=== PATIENT | female | born 1930 | race Caucasian/White ===

== ENCOUNTER 2018-06-25 08:40 | Inpatient (IN) | payer MEDICARE ==
[~2018-06-25] VITALS: Ht 157.5 cm; Wt 74.1 kg
--- NOTE | 2018-06-25 09:13 | PHYS DOC ---
Past Medical History Past Medical History: A-Fib, CVA (hemorrhagic), Hypertension Past Surgical History: Appendectomy, Cholecystectomy Smoking: Cigarettes (The patient is a nonsmoker.) Adult General HPI HPI Patient is a pleasant 87-year-old female, who lives in an independent retirement apartment, who presents to the emergency department for evaluation. She states that on Monday and Monday she had a lot of diarrhea and nausea, but her symptoms improved yesterday, but she began having diarrhea again overnight. She has not had any abdominal pain other than some mild intermittent abdominal cramping. She has not had any fevers or chills, or vomiting, but has had some nausea. He denies any chest pain or shortness of breath. She has not had any urinary symptoms, numbness, or focal weakness. She has had some mild generalized weakness. There are no alleviating or exacerbating factors to the patient's symptoms. Review of Systems Review of Systems Constitutional: Denies fever or chills [] Eyes: Denies change in visual acuity, redness, or eye pain [] HENT: Denies nasal congestion or sore throat [] Respiratory: Denies cough or shortness of breath [] Cardiovascular: The patient denies any shortness of breath, chest pain, palpitations, or orthopnea [] GI: No additional information not addressed in HPI [] : Denies dysuria or hematuria [] Musculoskeletal: Denies back pain or joint pain [] Integument: Denies rash or skin lesions [] Neurologic: Denies headache, focal weakness or sensory changes [] Endocrine: Denies polyuria or polydipsia [] All other systems were reviewed and found to be within normal limits, except as documented in this note. Current Medications Current Medications Current Medications Medications (Trade) Dose Ordered Sig/Rosibel Start Time Stop Time Status Last Admin Dose Admin Sodium Chloride 1,000 ml @ 100 mls/hr Q10H 06/25/18 10:00 06/25/18 19:59 06/25/18 10:00 100 MLS/HR Allergies Allergies Allergies Coded Allergies Type Severity Reaction Last Updated Verified Penicillins Allergy Unknown Hives 06/25/18 Yes Physical Exam Physical Exam PHYSICAL EXAM: CONSTITUTIONAL: Well developed, well nourished HEAD: normocephalic, atraumatic EENT: PERRL, EOMI. Conjunctivae normal color, sclerae non-icteric; moist mucous membranes. NECK: Supple, non-tender; no meningismus. LUNGS: Lungs CTA, breathing even and unlabored. Normal air movement. HEART: Regular rate and rhythm, no murmur CHEST: No deformity; non-tender ABDOMEN: The abdomen is soft, and non-tender, no masses or bruits. EXTREM: Normal ROM; no deformity, no calf tenderness. Normal pulses palpable in all extremities. There is no pedal edema. SKIN: No rash; no diaphoresis NEURO: Alert; normal speech and cognition; CN's grossly intact; strength grossly intact without focal deficit. BACK: No CVA TTP. Current Patient Data Vital Signs Vital Signs Date Time Temp Pulse Resp B/P (MAP) Pulse Ox O2 Delivery O2 Flow Rate FiO2 06/25/18 12:00 64 113/65 (81) 94 Room Air 06/25/18 11:00 16 06/25/18 09:47 98.0 98.0 Lab Values Laboratory Tests Test 06/25/18 09:10 06/25/18 13:15 White Blood Count 9.2 x10^3/uL (4.0-11.0) Red Blood Count 4.27 x10^6/uL (3.50-5.40) Hemoglobin 13.8 g/dL (12.0-15.5) Hematocrit 40.6 % (36.0-47.0) Mean Corpuscular Volume 95 fL (79-100) Mean Corpuscular Hemoglobin 32 pg (25-35) Mean Corpuscular Hemoglobin Concent 34 g/dL (31-37) Red Cell Distribution Width 14.6 % (11.5-14.5) H Platelet Count 135 x10^3/uL (140-400) L Neutrophils (%) (Auto) 82 % (31-73) H Lymphocytes (%) (Auto) 7 % (24-48) L Monocytes (%) (Auto) 10 % (0-9) H Eosinophils (%) (Auto) 1 % (0-3) Basophils (%) (Auto) 0 % (0-3) Neutrophils # (Auto) 7.5 x10^3uL (1.8-7.7) Lymphocytes # (Auto) 0.7 x10^3/uL (1.0-4.8) L Monocytes # (Auto) 0.9 x10^3/uL (0.0-1.1) Eosinophils # (Auto) 0.1 x10^3/uL (0.0-0.7) Basophils # (Auto) 0.0 x10^3/uL (0.0-0.2) Sodium Level 140 mmol/L (136-145) Potassium Level 3.7 mmol/L (3.5-5.1) Chloride Level 102 mmol/L (98-107) Carbon Dioxide Level 26 mmol/L (21-32) Anion Gap 12 (6-14) Blood Urea Nitrogen 14 mg/dL (7-20) Creatinine 0.8 mg/dL (0.6-1.0) Estimated GFR (Cockcroft-Gault) 67.5 BUN/Creatinine Ratio 18 (6-20) Glucose Level 125 mg/dL (70-99) H Calcium Level 9.3 mg/dL (8.5-10.1) Total Bilirubin 0.6 mg/dL (0.2-1.0) Aspartate Amino Transferase (AST) 20 U/L (15-37) Alanine Aminotransferase (ALT) 24 U/L (14-59) Alkaline Phosphatase 53 U/L (46-116) Total Protein 6.8 g/dL (6.4-8.2) Albumin 3.8 g/dL (3.4-5.0) Albumin/Globulin Ratio 1.3 (1.0-1.7) Lipase 73 U/L (73-393) Stool Occult Blood Positive (NEG) Laboratory Tests 06/25/18 09:10 Laboratory Tests 06/25/18 09:10 EKG EKG [] Radiology/Procedures Radiology/Procedures [] Course & Med Decision Making Course & Med Decision Making Pertinent Labs and Imaging studies reviewed. (See chart for details) [2:20 PM: The patient's condition remains a stable. She still feels generally weak. I discussed the case with the hospitalist will admit the patient further evaluation and treatment. Given her Hemoccult positive stool GI may see her. Her belly remained soft and there is no indication for emergent CT at this time. ] Dragon Disclaimer Dragon Disclaimer This electronic medical record was generated, in whole or in part, using a voice recognition dictation system. Departure Departure Impression: Primary Impression: Diarrhea Additional Impressions: Occult blood in stools Weakness Disposition: 09 ADMITTED INPATIENT Admitting Physician: Nitesh Davalos Condition: STABLE Problem Qualifiers SEFERINO MERCER MD Jun 25, 2018 09:13
[2018-06-25 09:24] LABS: BASO % 0 % (0-3); EOS # 0.1 x10^3/uL (0.0-0.7); EOS % 1 % (0-3); HEMATOCRIT 40.6 % (36.0-47.0); HEMOGLOBIN 13.8 g/dL (12.0-15.5); LYMPH # 0.7 x10^3/uL (1.0-4.8); LYMPH % 7 % (24-48); MEAN CORPUSCULAR HEMOGLOBIN 32 pg (25-35); MEAN CORPUSCULAR HGB CONC 34 g/dL (31-37); MEAN CORPUSCULAR VOLUME 95 fL (79-100); MONO # 0.9 x10^3/uL (0.0-1.1); MONO % 10 % (0-9); NEUT # 7.5 x10^3uL (1.8-7.7); NEUT % 82 % (31-73); PLATELET COUNT 135 x10^3/uL (140-400); RED BLOOD COUNT 4.27 x10^6/uL (3.50-5.40); RED CELL DISTRIBUTION WIDTH 14.6 % (11.5-14.5); WHITE BLOOD COUNT 9.2 x10^3/uL (4.0-11.0)
[2018-06-25 09:31] LABS: CALCIUM 9.3 mg/dL (8.5-10.1); CREATININE 0.8 mg/dL (0.6-1.0); GFR 67.5; POTASSIUM 3.7 mmol/L (3.5-5.1)
[2018-06-25 09:36] LABS: ALBUMIN 3.8 g/dL (3.4-5.0); ALBUMIN/GLOBULIN RATIO 1.3 (1.0-1.7); TOTAL BILIRUBIN 0.6 mg/dL (0.2-1.0); TOTAL PROTEIN 6.8 g/dL (6.4-8.2)
[2018-06-25] MEDS ORDERED: IV NORMAL SALINE 1000ML BAG 1,000 ML IV SCH (10:00)
[2018-06-25] MEDS ORDERED: IV NORMAL SALINE 500ML BAG 500 ML IV ONE (10:00)
[2018-06-25 13:33] LABS: FECAL OB PT POSITIVE (NEG)
--- NOTE | 2018-06-25 14:44 | HP ---
ADMIT DATE: 06/25/2018 CHIEF COMPLAINT: Weakness and diarrhea. HISTORY OF PRESENT ILLNESS: The patient is a pleasant 87-year-old female who presented to the ER with weakness and diarrhea. It has been occurring for several days, rated at 9/10. She has associated nausea. She lives alone in a assisted apartment. Tried taking some ofcs-now-tjyfzsh meds, but that was not working. Describes as agonizing. She has associated abdominal cramping. I discussed the case with ER physician. He states he did a guaiac test and it is positive for blood, which he suspects she could have a GI bleed as well. We are going to admit the patient and consult GI. PAST MEDICAL HISTORY: Lymphoma, hypertension, stroke, AFib, appendectomy, cholecystectomy. ALLERGIES: PENICILLIN. FAMILY HISTORY: Coronary artery disease. SOCIAL HISTORY: She does not drink, smoke or take any drugs. She retired from [employer] for 39 years. MEDICATIONS: Reviewed, please refer to MRAD. She is on xnth-ylo-rrieaxs vitamins and a few scripts. PHYSICAL EXAMINATION: VITAL SIGNS: Temperature afebrile, pulse 92, respirations 18, blood pressure 144/90. GENERAL: She is alert, cooperative, complaining of diarrhea. HEART: Normal S1, S2. LUNGS: Clear to auscultation. ABDOMEN: Soft, tender in the lower quadrants of the abdomen. EXTREMITIES: Trace edema. SKIN: No rash. ENDOCRINE: No thyromegaly. LYMPHATICS: No cervical nodes. HEMATOPOIETIC: No bruising. PSYCHIATRIC: She is depressed. NEUROLOGIC: She moves all extremities. No focal deficits. LABORATORY DATA: Hemoglobin is 13.8. Electrolytes are normal. ASSESSMENT AND PLAN: Gastrointestinal bleed and possible Clostridium difficile. The patient has been admitted. We will consult GI, p.r.n. Imodium. We will consider p.o. vancomycin or Flagyl. Frequent labs, PT, OT, home meds, IV fluids. CARLITOS HADLEY DO DR: CECILIA/clary JOB#: [id number] / [id number]
[2018-06-25 16:00] VITALS: BP 158/86
[2018-06-25] MEDS ORDERED: LEVE500T56 PO (17:42)
[2018-06-25] MEDS ORDERED: PANT20TA2 PO (17:42)
[2018-06-25] MEDS ORDERED: LEVO75TA PO (17:42)
[2018-06-25] MEDS ORDERED: AMLO5TAB7 PO (17:42)
[2018-06-25] MEDS ORDERED: FURO-69 PO (17:42)
[2018-06-25] MEDS ORDERED: SERT50TA PO (17:42)
[2018-06-25] MEDS ORDERED: LOSA-73 PO (17:42)
[2018-06-25] MEDS ORDERED: POTA10TA12 PO (17:42)
[2018-06-25] MEDS ORDERED: ATOR10TA60 PO (17:42)
[2018-06-25 19:00] VITALS: BP 162/97
[2018-06-25] MEDS: amLODIPine BESYLATE 5 MG TABLET PO SCH (21:23)
[2018-06-25] MEDS: levETIRAcetam 500 MG TABLET PO SCH (21:24)
[2018-06-25] MEDS: LOSARTAN POTASSIUM 50 MG TABLET. PO SCH (21:24)
[2018-06-25 22:56] VITALS: BP 149/91
[2018-06-26 03:00] VITALS: BP 140/80
[2018-06-26 07:00] VITALS: BP 132/84
[2018-06-26 07:13] LABS: BILIRUBIN,URINE NEGATIVE (NEG); CLARITY,URINE CLEAR; COLOR,URINE YELLOW; NITRITE,URINE NEGATIVE (NEG); PH,URINE 5.5; PROTEIN,URINE NEGATIVE (NEG-TRACE); UROBILINOGEN,URINE 0.2 mg/dL (0.2 mg/dL)
[2018-06-26 07:29] LABS: SQUAMOUS EPITHELIAL CELL,UR MOD /LPF
[2018-06-26 07:31] LABS: BACTERIA,URINE FEW /HPF (0-FEW); RBC,URINE 0 /HPF (0-2); WBC,URINE 20-40 /HPF (0-4)
[2018-06-26] MEDS: ATORVASTATIN CALCIUM 10 MG TABLET. PO SCH (07:35)
[2018-06-26] MEDS: SERTRALINE 50 MG TABLET. PO SCH (07:35)
[2018-06-26] MEDS: levETIRAcetam 500 MG TABLET PO SCH ×2 (07:36→20:46)
[2018-06-26] MEDS: LEVOTHYROXINE 75 MCG TABLET PO SCH (07:36)
[2018-06-26] MEDS: amLODIPine BESYLATE 5 MG TABLET PO SCH (07:36)
[2018-06-26] MEDS: LOSARTAN POTASSIUM 50 MG TABLET. PO SCH (07:36)
[2018-06-26] MEDS: PANTOPRAZOLE 40 MG TABLET.DR. PO SCH (07:36)
[2018-06-26] MEDS ORDERED: amLODIPine BESYLATE 5 MG TABLET PO SCH (09:00)
[2018-06-26] MEDS ORDERED: LOSARTAN POTASSIUM 50 MG TABLET. PO SCH (09:00)
--- NOTE | 2018-06-26 09:41 | PDOC2 ---
GI CONSULT Reason For Consult: Diarrhea HPI: HPI: 87 y/o woman with h/o intermittent diarrhea for at least 2 years. In fact, this is why she had her last colonoscopy ~2 years ago (thinks maybe in [place] or with Dr. Schultz). She has had "a lot" of colonoscopies but recalls no abnormal findings. Diarrhea most recently occurred in March, then then weekend before Thanksgiving after the holiday meal where she lives ([place]?), and then recurred overnight on Monday. Imodium usually helps, but not this time. Occurs "all day and all night" - no stools since yesterday. Associated w/ intermittent lower abdominal cramping and occasional nausea. Has avoided eating. Has had more than one EGD w/ remote h/o ulcer. "A little" GERD controlled w/ pantoprazole QD. No dysphagia or vomiting. No weight loss. No hematochezia or melena (says stools have been dark brown and yellowish - sometimes watery, sometimes in little pieces). Can actually occasionally be constipated (and takes Miralax) but not recently. Sometimes she has to repeatedly wipe after stooling to feel clean - attributes to hemorrhoid. Has some chronic right- sided discomfort when she lays on her left side that she thinks is related to previous hernia repair. Has had GI bleeding in the past requiring transfusions - relates to use of anticoagulants, unclear if specific bleeding source identified. S/p cholecystectomy (no stones). No liver or pancreas history. No NSAIDs. No recent antibiotic use. Also denies any changes in medications. Fell a couple weeks ago, was hospitalized and then went to rehab, Says she was told there was some blood found in her stool and she might have cancer so she needs a colonoscopy. She is hesitant because she has heard colonoscopies can be dangerous with advanced age. WBC and Hgb are WNL. Fecal occult was positive. C Diff was negative. Stool culture is pending. PMH: PMH: A Fib, CAD, valvular disease, HTN, CVA, hypothyroidism, GERD, "ulcer," hemorrhoid, lymphoma (chemo), CABG, AVR, cholecystectomy, incisional hernia repair, back surgeries FH: Family History: No pertinent hx Social History: Smoke: No ALCOHOL: none Drugs: None ROS: GEN: Denies fevers, chills, sweats HEENT: Denies blurred vision, sore throat CV: Denies chest pain RESP: Denies shortness of air, cough GI: Per HPI : Denies hematuria, dysuria ENDO: Denies weight changes NEURO: Denies confusion, dizziness MSK: +weakness SKIN: Denies jaundice, pruritus Vitals: Vitals: Vital Signs Date Time Temp Pulse Resp B/P (MAP) Pulse Ox O2 Delivery O2 Flow Rate FiO2 06/26/18 08:00 Room Air 06/26/18 07:36 87 132/84 06/26/18 07:00 98.2 18 93 98.2 Labs: Labs: Laboratory Tests Test 06/25/18 13:15 06/26/18 06:45 Stool Occult Blood Positive (NEG) Clostridium difficile Toxin B Gene Negative (Negative) Urine Collection Type Unknown Urine Color Yellow Urine Clarity Clear Urine pH 5.5 Urine Specific [place] 1.010 Urine Protein Negative mg/dL (NEG-TRACE) Urine Glucose (UA) Negative mg/dL (NEG) Urine Ketones (Stick) Trace mg/dL (NEG) Urine Blood Negative (NEG) Urine Nitrite Negative (NEG) Urine Bilirubin Negative (NEG) Urine Urobilinogen Dipstick 0.2 mg/dL (0.2 mg/dL) Urine Leukocyte Esterase Trace (NEG) Urine RBC 0 /HPF (0-2) Urine WBC 20-40 /HPF (0-4) Urine Squamous Epithelial Cells Mod /LPF Urine Bacteria Few /HPF (0-FEW) Allergies: Coded Allergies: Penicillins (Verified Allergy, Intermediate, Hives, 06/26/18) Medications: Current Medications Medications (Trade) Dose Ordered Sig/Rosibel Route PRN Reason Start Time Stop Time Status Last Admin Dose Admin Sodium Chloride 500 ml @ 500 mls/hr 1X ONCE IV 06/25/18 10:00 06/25/18 10:59 DC 06/25/18 10:03 Sodium Chloride 1,000 ml @ 100 mls/hr Q10H IV 06/25/18 10:00 06/25/18 19:59 DC 06/25/18 10:00 Atorvastatin Calcium (Lipitor) 10 mg DAILY PO 06/26/18 09:00 06/26/18 07:35 Levetiracetam (Keppra) 500 mg BID PO 06/25/18 21:00 06/26/18 07:36 Levothyroxine Sodium (Synthroid) 75 mcg DAILY PO 06/26/18 09:00 06/26/18 07:36 Sertraline HCl (Zoloft) 75 mg DAILY PO 06/26/18 09:00 06/26/18 07:35 Pantoprazole Sodium (Protonix) 40 mg DAILYAC PO 06/26/18 07:30 06/26/18 07:36 Amlodipine Besylate (Norvasc) 5 mg DAILY PO 06/25/18 21:00 06/26/18 07:36 Losartan Potassium (Cozaar) 50 mg DAILY PO 06/25/18 21:00 06/26/18 07:36 Imaging: Imaging: None. PE: GEN: NAD HEENT: Atraumatic, PERRL LUNGS: CTAB HEART: RRR ABD: NABS, S/ND/NT EXTREMITY: No edema SKIN: No rashes, no jaundice NEURO/PSYCH: A & O 3 A/P: A/P: Recurrent diarrhea w/ nausea and lower abd cramping +fecal occult GERD, h/o ulcer - on PPI H/o GI bleeding requiring transfusions Irregular bowel habits CRC screen - multiple colonoscopies in the past, says all normal S/p cholecystectomy -- Actually seems like a chronic issue, perhaps more bothersome over the weekend. Stool culture pending, await this. Will try clears, check CT A/P, and observe. Continue PPI. Other per Dr. Zurita. Update - able to view colonoscopy report from 07/2010 (performed by Dr. Schultz for follow-up of polyps): 2mm adenomatous polyp in the ascending colon, 2mm adenomatous polyp in the descending colon, hyperplastic polyp in the sigmoid colon, and diverticulosis from proximal ascending colon to distal sigmoid colon. CASTILLO GRECO Jun 26, 2018 09:40
[2018-06-26 10:37] VITALS: BP 131/84
[2018-06-26] MEDS ORDERED: IOHEXOL 240 MG/ML 50ML VIAL. IV ONE (11:00)
[2018-06-26] MEDS ORDERED: CONTRAST GIVEN. MC PRN (11:00)
[2018-06-26] MEDS ORDERED: IOHEXOL 300 MG/ML 100ML VIAL. IV ONE (11:00)
--- NOTE | 2018-06-26 13:10 | PDOC ---
PROGRESS NOTES History of Present Illness History of Present Illness Pleasant 87yo female w/ PMHx Lymphoma, hypertension, stroke, AFib, appendectomy , cholecystectomy admitted for intermittent diarrhea for at least 2 years. Diarrhea most recently occurred weekend before Thanksgiving after the holiday meal where she lives. Imodium usually helps, but not this time. Occurs "all day and all night" - no stools since yesterday. Associated w/ intermittent lower abdominal cramping and occasional nausea. Has avoided eating due to this , does not like her diet at [facility]. Has had more than one EGD w/ remote h/o ulcer and colonoscopy in 2010 with hyperplastic polyp and 2x adenomatous polyps. No dysphagia or vomiting. No weight loss. Has had GI bleeding in the past requiring transfusions - relates to use of anticoagulants, unclear if specific bleeding source identified. S/p cholecystectomy (no stones). Discussed with her and her daughter bedside, was told there was some blood found in her stool and she might have cancer so she needs a colonoscopy. She still does not have appetite today and would like to have ice cream at the least. WBC and Hgb are WNL. Fecal occult was positive. C Diff was negative. Stool culture is pending. A/P: Blood in stool - history of rectal bleeding previously multiple colonoscopies, will consult GI Diarrhea - sounds chronic, will f/u stool cultures, immodium ok if c diff negative. HTN - will monitor Afib - rate control H/O CVA - ambulatory FEN - Clear liquid, ok for full liquid after CT abdomen PPX - SCDs FULL CODE Inpatient for diarrhea of uncertain etiology at least 2 midnights Vitals Vitals Vital Signs Date Time Temp Pulse Resp B/P (MAP) Pulse Ox O2 Delivery O2 Flow Rate FiO2 06/26/18 10:37 97.8 68 20 131/84 (100) 94 Room Air 97.8 Labs LABS Laboratory Tests Test 06/25/18 13:15 06/26/18 06:45 Stool Occult Blood Positive (NEG) Clostridium difficile Toxin B Gene Negative (Negative) Urine Collection Type Unknown Urine Color Yellow Urine Clarity Clear Urine pH 5.5 Urine Specific [place] 1.010 Urine Protein Negative mg/dL (NEG-TRACE) Urine Glucose (UA) Negative mg/dL (NEG) Urine Ketones (Stick) Trace mg/dL (NEG) Urine Blood Negative (NEG) Urine Nitrite Negative (NEG) Urine Bilirubin Negative (NEG) Urine Urobilinogen Dipstick 0.2 mg/dL (0.2 mg/dL) Urine Leukocyte Esterase Trace (NEG) Urine RBC 0 /HPF (0-2) Urine WBC 20-40 /HPF (0-4) Urine Squamous Epithelial Cells Mod /LPF Urine Bacteria Few /HPF (0-FEW) Assessment and Plan Assessmemt and Plan Problems Medical Problems: (1) Diarrhea Status: Acute (2) Occult blood in stools Status: Acute (3) Weakness Status: Acute Comment Review of Relevant I have reviewed the following items alfredo (where applicable) has been applied. Labs Laboratory Tests Test 06/25/18 09:10 06/25/18 13:15 06/26/18 06:45 White Blood Count 9.2 x10^3/uL (4.0-11.0) Red Blood Count 4.27 x10^6/uL (3.50-5.40) Hemoglobin 13.8 g/dL (12.0-15.5) Hematocrit 40.6 % (36.0-47.0) Mean Corpuscular Volume 95 fL (79-100) Mean Corpuscular Hemoglobin 32 pg (25-35) Mean Corpuscular Hemoglobin Concent 34 g/dL (31-37) Red Cell Distribution Width 14.6 % (11.5-14.5) Platelet Count 135 x10^3/uL (140-400) Neutrophils (%) (Auto) 82 % (31-73) Lymphocytes (%) (Auto) 7 % (24-48) Monocytes (%) (Auto) 10 % (0-9) Eosinophils (%) (Auto) 1 % (0-3) Basophils (%) (Auto) 0 % (0-3) Neutrophils # (Auto) 7.5 x10^3uL (1.8-7.7) Lymphocytes # (Auto) 0.7 x10^3/uL (1.0-4.8) Monocytes # (Auto) 0.9 x10^3/uL (0.0-1.1) Eosinophils # (Auto) 0.1 x10^3/uL (0.0-0.7) Basophils # (Auto) 0.0 x10^3/uL (0.0-0.2) Sodium Level 140 mmol/L (136-145) Potassium Level 3.7 mmol/L (3.5-5.1) Chloride Level 102 mmol/L (98-107) Carbon Dioxide Level 26 mmol/L (21-32) Anion Gap 12 (6-14) Blood Urea Nitrogen 14 mg/dL (7-20) Creatinine 0.8 mg/dL (0.6-1.0) Estimated GFR (Cockcroft-Gault) 67.5 BUN/Creatinine Ratio 18 (6-20) Glucose Level 125 mg/dL (70-99) Calcium Level 9.3 mg/dL (8.5-10.1) Total Bilirubin 0.6 mg/dL (0.2-1.0) Aspartate Amino Transf (AST/SGOT) 20 U/L (15-37) Alanine Aminotransferase (ALT/SGPT) 24 U/L (14-59) Alkaline Phosphatase 53 U/L (46-116) Total Protein 6.8 g/dL (6.4-8.2) Albumin 3.8 g/dL (3.4-5.0) Albumin/Globulin Ratio 1.3 (1.0-1.7) Lipase 73 U/L (73-393) Stool Occult Blood Positive (NEG) Clostridium difficile Toxin B Gene Negative (Negative) Urine Collection Type Unknown Urine Color Yellow Urine Clarity Clear Urine pH 5.5 Urine Specific [place] 1.010 Urine Protein Negative mg/dL (NEG-TRACE) Urine Glucose (UA) Negative mg/dL (NEG) Urine Ketones (Stick) Trace mg/dL (NEG) Urine Blood Negative (NEG) Urine Nitrite Negative (NEG) Urine Bilirubin Negative (NEG) Urine Urobilinogen Dipstick 0.2 mg/dL (0.2 mg/dL) Urine Leukocyte Esterase Trace (NEG) Urine RBC 0 /HPF (0-2) Urine WBC 20-40 /HPF (0-4) Urine Squamous Epithelial Cells Mod /LPF Urine Bacteria Few /HPF (0-FEW) Laboratory Tests Test 06/25/18 13:15 06/26/18 06:45 Stool Occult Blood Positive (NEG) Clostridium difficile Toxin B Gene Negative (Negative) Urine Collection Type Unknown Urine Color Yellow Urine Clarity Clear Urine pH 5.5 Urine Specific [place] 1.010 Urine Protein Negative mg/dL (NEG-TRACE) Urine Glucose (UA) Negative mg/dL (NEG) Urine Ketones (Stick) Trace mg/dL (NEG) Urine Blood Negative (NEG) Urine Nitrite Negative (NEG) Urine Bilirubin Negative (NEG) Urine Urobilinogen Dipstick 0.2 mg/dL (0.2 mg/dL) Urine Leukocyte Esterase Trace (NEG) Urine RBC 0 /HPF (0-2) Urine WBC 20-40 /HPF (0-4) Urine Squamous Epithelial Cells Mod /LPF Urine Bacteria Few /HPF (0-FEW) Medications Current Medications Sodium Chloride 500 ml @ 500 mls/hr 1X ONCE IV Last administered on at 10:03; Start 06/25/18 at 10:00; Stop 06/25/18 at 10:59; Status DC Sodium Chloride 1,000 ml @ 100 mls/hr Q10H IV Last administered on 06/25/18at 10:00; Start 06/25/18 at 10:00; Stop 06/25/18 at 19:59; Status DC Amlodipine Besylate (Norvasc) 5 mg DAILY PO ; Start 06/26/18 at 09:00; Stop at 09:00; Status DC Atorvastatin Calcium (Lipitor) 10 mg DAILY PO Last administered on 06/26/18at 07:35; Start 06/26/18 at 09:00 Furosemide (Lasix) 20 mg QMWF PO ; Start 06/27/18 at 16:00 Levetiracetam (Keppra) 500 mg BID PO Last administered on 06/26/18at 07:36; Start 06/25/18 at 21:00 Levothyroxine Sodium (Synthroid) 75 mcg DAILY PO Last administered on at 07:36; Start 06/26/18 at 09:00 Losartan Potassium (Cozaar) 50 mg DAILY PO ; Start 06/26/18 at 09:00; Stop at 09:00; Status DC Potassium Chloride (Klor-Con) 10 meq QMWF PO ; Start 06/27/18 at 16:00 Sertraline HCl (Zoloft) 75 mg DAILY PO Last administered on 06/26/18at 07:35; Start 06/26/18 at 09:00 Pantoprazole Sodium (Protonix) 40 mg DAILYAC PO Last administered on at 07:36; Start 06/26/18 at 07:30 Amlodipine Besylate (Norvasc) 5 mg DAILY PO Last administered on 06/26/18at 07: 36; Start 06/25/18 at 21:00 Losartan Potassium (Cozaar) 50 mg DAILY PO Last administered on 06/26/18at 07: 36; Start 06/25/18 at 21:00 Iohexol (Omnipaque 240 Mg/ml) 50 ml 1X ONCE IV ; Start 06/26/18 at 11:00; Stop 06/26/18 at 11:01; Status DC Iohexol (Omnipaque 300 Mg/ml) 75 ml 1X ONCE IV ; Start 06/26/18 at 11:00; Stop 06/26/18 at 11:01; Status DC Info (CONTRAST GIVEN -- Rx MONITORING) 1 each PRN DAILY PRN MC SEE COMMENTS; Start 06/26/18 at 11:00; Stop 06/28/18 at 10:59 Active Scripts Active Reported Synthroid (Levothyroxine Sodium) 75 Mcg Tablet 1 Tab PO DAILY Losartan Potassium 50 Mg Tablet 50 Mg PO DAILY Zoloft (Sertraline Hcl) 50 Mg Tablet 75 Mg PO DAILY Keppra (Levetiracetam) 500 Mg Tablet 1 Tab PO BID Protonix (Pantoprazole Sodium) 20 Mg Tablet.dr 40 Mg PO DAILY Amlodipine Besylate 5 Mg Tablet 5 Mg PO DAILY Atorvastatin Calcium 10 Mg Tablet 1 Tab PO DAILY Potassium Chloride 10 Meq Tab.sr.24h 10 Meq PO QMWF Lasix (Furosemide) 20 Mg Tablet 20 Mg PO QMWF Vitals/I & O Vital Sign - Last 24 Hours 06/25/18 06/25/18 06/25/18 06/25/18 13:52 14:52 16:00 18:07 Temp 97.8 97.8 Pulse 68 66 74 Resp 20 B/P (MAP) 146/86 (106) 156/90 (112) 158/86 (110) Pulse Ox 92 O2 Delivery Room Air Room Air 06/25/18 06/25/18 06/25/18 06/25/18 19:00 20:09 21:23 21:24 Temp 97.8 97.8 Pulse 69 69 69 Resp 20 B/P (MAP) 162/97 (118) 162/97 162/97 Pulse Ox 93 O2 Delivery Room Air Room Air 06/25/18 06/26/18 06/26/18 06/26/18 22:56 03:00 07:00 07:36 Temp 98.1 97.9 98.2 98.1 97.9 98.2 Pulse 80 74 87 87 Resp 18 18 18 B/P (MAP) 149/91 (110) 140/80 (100) 132/84 (100) 132/84 Pulse Ox 93 93 93 O2 Delivery Room Air Room Air Room Air 06/26/18 06/26/18 06/26/18 07:36 08:00 10:37 Temp 97.8 97.8 Pulse 87 68 Resp 20 B/P (MAP) 132/84 131/84 (100) Pulse Ox 94 O2 Delivery Room Air Room Air Intake and Output 06/25/18 06/25/18 06/26/18 15:00 23:00 07:00 Intake Total 600 ml 60 ml Balance 600 ml 60 ml NIKIA KOWALSKI MD Jun 26, 2018 13:10
--- NOTE | 2018-06-26 14:10 | RAD ---
CT of the abdomen and pelvis with contrast, 06/26/2018: HISTORY: Lower abdominal pain, diarrhea Multidetector CT imaging was performed following oral and IV administration of contrast. A stent-like radiopacity is present related to the proximal descending aorta and aortic valve region. Coronary artery calcifications are present. There is mild linear atelectasis and/or scarring in the lung bases. There is a 4.4 cm cyst in the left lobe of the liver. There is a smaller nearby 1 cm cyst. The gallbladder is surgically absent. Mild prominence of the central intrahepatic bile ducts and common hepatic duct is probably secondary to the postcholecystectomy state. No dense common duct calculus is seen. The pancreas is unremarkable. The spleen is of normal size. No renal or adrenal abnormality is detected. There is moderate aortoiliac calcific plaquing without evidence of aneurysm. No abdominal or pelvic adenopathy is seen. The uterus is atrophic. Artifacts arising from a right hip prosthesis degrade image quality in the lower pelvis. Scattered colonic diverticula are present. No paracolonic inflammatory process is seen. The appendix is not visualized. No dilated appendix is evident. The bowel loops are not dilated. No free air or free fluid is evident in the abdomen or pelvis. There is diastases of the rectus abdominis musculature with thinning of the intervening fascia. There is a suggestion of a surgical mesh in this region at the midline. Severe degenerative change is present at the left hip. There are severe degenerative changes in the spine. There has been a previous lower lumbar spinal fusion with partial laminectomy. A radiopacity within the right side of the upper sacral spinal canal probably represents an old Pantopaque droplet. There is a vertebral compression fracture with vertebroplasty change at approximately the T11 level. IMPRESSION: 1. Colonic diverticulosis. 2. Mild biliary ductal prominence is probably secondary to the postcholecystectomy state. 3. Hepatic cysts. 4. Other miscellaneous chronic findings as described above. 5. No acute abdominal or pelvic abnormality is detected. PQRS Compliance Statement: One or more of the following individualized dose reduction techniques were utilized for this examination: 1. Automated exposure control 2. Adjustment of the mA and/or kV according to patient size 3. Use of iterative reconstruction technique Electronically signed by: Candido Pang MD (06/26/2018 2:06 PM) [facility]
[2018-06-26 14:51] VITALS: BP 145/82
[2018-06-26] MEDS ORDERED: LOPERAMIDE 2 MG CAPSULE PO PRN (15:00)
[2018-06-26 19:00] VITALS: BP 148/85
[2018-06-26] MEDS: COLESTIPOL HCL 1 GM TABLET PO SCH (21:57)
[2018-06-26 23:00] VITALS: BP 154/106
[2018-06-27 03:00] VITALS: BP 133/76
[2018-06-27 06:21] LABS: BASO % 1 % (0-3); EOS # 0.2 x10^3/uL (0.0-0.7); EOS % 2 % (0-3); HEMOGLOBIN 13.7 g/dL (12.0-15.5); LYMPH # 0.8 x10^3/uL (1.0-4.8); LYMPH % 12 % (24-48); MEAN CORPUSCULAR HEMOGLOBIN 33 pg (25-35); MEAN CORPUSCULAR HGB CONC 35 g/dL (31-37); MEAN CORPUSCULAR VOLUME 94 fL (79-100); MONO # 0.8 x10^3/uL (0.0-1.1); MONO % 12 % (0-9); NEUT % 74 % (31-73); PLATELET COUNT 136 x10^3/uL (140-400); RED BLOOD COUNT 4.13 x10^6/uL (3.50-5.40); RED CELL DISTRIBUTION WIDTH 14.4 % (11.5-14.5); WHITE BLOOD COUNT 6.8 x10^3/uL (4.0-11.0)
[2018-06-27 06:36] LABS: ALBUMIN 3.3 g/dL (3.4-5.0); CALCIUM 8.7 mg/dL (8.5-10.1); CREATININE 0.6 mg/dL (0.6-1.0); GFR 94.1; TOTAL BILIRUBIN 0.6 mg/dL (0.2-1.0); TOTAL PROTEIN 6.6 g/dL (6.4-8.2)
[2018-06-27 07:00] VITALS: BP 131/79
[2018-06-27] MEDS: PANTOPRAZOLE 40 MG TABLET.DR. PO SCH (07:05)
--- NOTE | 2018-06-27 07:49 | PDOC ---
PROGRESS NOTES History of Present Illness History of Present Illness Pleasant 87yo female w/ PMHx Lymphoma, hypertension, stroke, AFib, appendectomy , cholecystectomy admitted for intermittent diarrhea for at least 2 years. Diarrhea most recently occurred weekend before Thanksgiving after the holiday meal where she lives. Imodium usually helps, but not this time. Occurs "all day and all night" - no stools since yesterday. Associated w/ intermittent lower abdominal cramping and occasional nausea. Has avoided eating due to this , does not like her diet at [facility] [place]. Has had more than one EGD w/ remote h/o ulcer and colonoscopy in 2010 with hyperplastic polyp and 2x adenomatous polyps. No dysphagia or vomiting. No weight loss. Has had GI bleeding in the past requiring transfusions - relates to use of anticoagulants, unclear if specific bleeding source identified. S/p cholecystectomy (no stones). Discussed with her and her daughter bedside, she had CT abdomen rather negative. Ate a full meal last night, would like to continue eating. No BM. WBC and Hgb are WNL. Fecal occult was positive. C Diff was negative. Stool culture is pending. A/P: Blood in stool - history of rectal bleeding previously multiple colonoscopies, will consult GI Diarrhea - sounds chronic, will f/u stool cultures, immodium ok if c diff negative. HTN - will monitor Afib - rate control H/O CVA - ambulatory FEN - Clear liquid, ok for full liquid after CT abdomen PPX - SCDs FULL CODE Inpatient for diarrhea of uncertain etiology at least [address] abdomen - 1. Colonic diverticulosis. 2. Mild biliary ductal prominence is probably secondary to the postcholecystectomy state. 3. Hepatic cysts. 4. Other miscellaneous chronic findings as described above. 5. No acute abdominal or pelvic abnormality is detected. Vitals Vitals Vital Signs Date Time Temp Pulse Resp B/P (MAP) Pulse Ox O2 Delivery O2 Flow Rate FiO2 06/27/18 03:00 97.9 61 20 133/76 (95) 97 Room Air 97.9 Labs LABS Laboratory Tests Test 06/27/18 05:20 White Blood Count 6.8 x10^3/uL (4.0-11.0) Red Blood Count 4.13 x10^6/uL (3.50-5.40) Hemoglobin 13.7 g/dL (12.0-15.5) Hematocrit 39.0 % (36.0-47.0) Mean Corpuscular Volume 94 fL (79-100) Mean Corpuscular Hemoglobin 33 pg (25-35) Mean Corpuscular Hemoglobin Concent 35 g/dL (31-37) Red Cell Distribution Width 14.4 % (11.5-14.5) Platelet Count 136 x10^3/uL (140-400) Neutrophils (%) (Auto) 74 % (31-73) Lymphocytes (%) (Auto) 12 % (24-48) Monocytes (%) (Auto) 12 % (0-9) Eosinophils (%) (Auto) 2 % (0-3) Basophils (%) (Auto) 1 % (0-3) Neutrophils # (Auto) 5.0 x10^3uL (1.8-7.7) Lymphocytes # (Auto) 0.8 x10^3/uL (1.0-4.8) Monocytes # (Auto) 0.8 x10^3/uL (0.0-1.1) Eosinophils # (Auto) 0.2 x10^3/uL (0.0-0.7) Basophils # (Auto) 0.0 x10^3/uL (0.0-0.2) Sodium Level 140 mmol/L (136-145) Potassium Level 3.0 mmol/L (3.5-5.1) Chloride Level 103 mmol/L (98-107) Carbon Dioxide Level 27 mmol/L (21-32) Anion Gap 10 (6-14) Blood Urea Nitrogen 5 mg/dL (7-20) Creatinine 0.6 mg/dL (0.6-1.0) Estimated GFR (Cockcroft-Gault) 94.1 BUN/Creatinine Ratio 8 (6-20) Glucose Level 115 mg/dL (70-99) Calcium Level 8.7 mg/dL (8.5-10.1) Total Bilirubin 0.6 mg/dL (0.2-1.0) Aspartate Amino Transf (AST/SGOT) 18 U/L (15-37) Alanine Aminotransferase (ALT/SGPT) 23 U/L (14-59) Alkaline Phosphatase 54 U/L (46-116) Total Protein 6.6 g/dL (6.4-8.2) Albumin 3.3 g/dL (3.4-5.0) Albumin/Globulin Ratio 1.0 (1.0-1.7) Assessment and Plan Assessmemt and Plan Problems Medical Problems: (1) Diarrhea Status: Acute (2) Occult blood in stools Status: Acute (3) Weakness Status: Acute Comment Review of Relevant I have reviewed the following items alfredo (where applicable) has been applied. Labs Laboratory Tests Test 06/25/18 09:10 06/25/18 13:15 06/26/18 06:45 06/27/18 05:20 White Blood Count 9.2 x10^3/uL (4.0-11.0) 6.8 x10^3/uL (4.0-11.0) Red Blood Count 4.27 x10^6/uL (3.50-5.40) 4.13 x10^6/uL (3.50-5.40) Hemoglobin 13.8 g/dL (12.0-15.5) 13.7 g/dL (12.0-15.5) Hematocrit 40.6 % (36.0-47.0) 39.0 % (36.0-47.0) Mean Corpuscular Volume 95 fL (79-100) 94 fL (79-100) Mean Corpuscular Hemoglobin 32 pg (25-35) 33 pg (25-35) Mean Corpuscular Hemoglobin Concent 34 g/dL (31-37) 35 g/dL (31-37) Red Cell Distribution Width 14.6 % (11.5-14.5) 14.4 % (11.5-14.5) Platelet Count 135 x10^3/uL (140-400) 136 x10^3/uL (140-400) Neutrophils (%) (Auto) 82 % (31-73) 74 % (31-73) Lymphocytes (%) (Auto) 7 % (24-48) 12 % (24-48) Monocytes (%) (Auto) 10 % (0-9) 12 % (0-9) Eosinophils (%) (Auto) 1 % (0-3) 2 % (0-3) Basophils (%) (Auto) 0 % (0-3) 1 % (0-3) Neutrophils # (Auto) 7.5 x10^3uL (1.8-7.7) 5.0 x10^3uL (1.8-7.7) Lymphocytes # (Auto) 0.7 x10^3/uL (1.0-4.8) 0.8 x10^3/uL (1.0-4.8) Monocytes # (Auto) 0.9 x10^3/uL (0.0-1.1) 0.8 x10^3/uL (0.0-1.1) Eosinophils # (Auto) 0.1 x10^3/uL (0.0-0.7) 0.2 x10^3/uL (0.0-0.7) Basophils # (Auto) 0.0 x10^3/uL (0.0-0.2) 0.0 x10^3/uL (0.0-0.2) Sodium Level 140 mmol/L (136-145) 140 mmol/L (136-145) Potassium Level 3.7 mmol/L (3.5-5.1) 3.0 mmol/L (3.5-5.1) Chloride Level 102 mmol/L (98-107) 103 mmol/L (98-107) Carbon Dioxide Level 26 mmol/L (21-32) 27 mmol/L (21-32) Anion Gap 12 (6-14) 10 (6-14) Blood Urea Nitrogen 14 mg/dL (7-20) 5 mg/dL (7-20) Creatinine 0.8 mg/dL (0.6-1.0) 0.6 mg/dL (0.6-1.0) Estimated GFR (Cockcroft-Gault) 67.5 94.1 BUN/Creatinine Ratio 18 (6-20) 8 (6-20) Glucose Level 125 mg/dL (70-99) 115 mg/dL (70-99) Calcium Level 9.3 mg/dL (8.5-10.1) 8.7 mg/dL (8.5-10.1) Total Bilirubin 0.6 mg/dL (0.2-1.0) 0.6 mg/dL (0.2-1.0) Aspartate Amino Transf (AST/SGOT) 20 U/L (15-37) 18 U/L (15-37) Alanine Aminotransferase (ALT/SGPT) 24 U/L (14-59) 23 U/L (14-59) Alkaline Phosphatase 53 U/L (46-116) 54 U/L (46-116) Total Protein 6.8 g/dL (6.4-8.2) 6.6 g/dL (6.4-8.2) Albumin 3.8 g/dL (3.4-5.0) 3.3 g/dL (3.4-5.0) Albumin/Globulin Ratio 1.3 (1.0-1.7) 1.0 (1.0-1.7) Lipase 73 U/L (73-393) Stool Occult Blood Positive (NEG) Clostridium difficile Toxin B Gene Negative (Negative) Urine Collection Type Unknown Urine Color Yellow Urine Clarity Clear Urine pH 5.5 Urine Specific [place] 1.010 Urine Protein Negative mg/dL (NEG-TRACE) Urine Glucose (UA) Negative mg/dL (NEG) Urine Ketones (Stick) Trace mg/dL (NEG) Urine Blood Negative (NEG) Urine Nitrite Negative (NEG) Urine Bilirubin Negative (NEG) Urine Urobilinogen Dipstick 0.2 mg/dL (0.2 mg/dL) Urine Leukocyte Esterase Trace (NEG) Urine RBC 0 /HPF (0-2) Urine WBC 20-40 /HPF (0-4) Urine Squamous Epithelial Cells Mod /LPF Urine Bacteria Few /HPF (0-FEW) Laboratory Tests Test 06/27/18 05:20 White Blood Count 6.8 x10^3/uL (4.0-11.0) Red Blood Count 4.13 x10^6/uL (3.50-5.40) Hemoglobin 13.7 g/dL (12.0-15.5) Hematocrit 39.0 % (36.0-47.0) Mean Corpuscular Volume 94 fL (79-100) Mean Corpuscular Hemoglobin 33 pg (25-35) Mean Corpuscular Hemoglobin Concent 35 g/dL (31-37) Red Cell Distribution Width 14.4 % (11.5-14.5) Platelet Count 136 x10^3/uL (140-400) Neutrophils (%) (Auto) 74 % (31-73) Lymphocytes (%) (Auto) 12 % (24-48) Monocytes (%) (Auto) 12 % (0-9) Eosinophils (%) (Auto) 2 % (0-3) Basophils (%) (Auto) 1 % (0-3) Neutrophils # (Auto) 5.0 x10^3uL (1.8-7.7) Lymphocytes # (Auto) 0.8 x10^3/uL (1.0-4.8) Monocytes # (Auto) 0.8 x10^3/uL (0.0-1.1) Eosinophils # (Auto) 0.2 x10^3/uL (0.0-0.7) Basophils # (Auto) 0.0 x10^3/uL (0.0-0.2) Sodium Level 140 mmol/L (136-145) Potassium Level 3.0 mmol/L (3.5-5.1) Chloride Level 103 mmol/L (98-107) Carbon Dioxide Level 27 mmol/L (21-32) Anion Gap 10 (6-14) Blood Urea Nitrogen 5 mg/dL (7-20) Creatinine 0.6 mg/dL (0.6-1.0) Estimated GFR (Cockcroft-Gault) 94.1 BUN/Creatinine Ratio 8 (6-20) Glucose Level 115 mg/dL (70-99) Calcium Level 8.7 mg/dL (8.5-10.1) Total Bilirubin 0.6 mg/dL (0.2-1.0) Aspartate Amino Transf (AST/SGOT) 18 U/L (15-37) Alanine Aminotransferase (ALT/SGPT) 23 U/L (14-59) Alkaline Phosphatase 54 U/L (46-116) Total Protein 6.6 g/dL (6.4-8.2) Albumin 3.3 g/dL (3.4-5.0) Albumin/Globulin Ratio 1.0 (1.0-1.7) Medications Current Medications Sodium Chloride 500 ml @ 500 mls/hr 1X ONCE IV Last administered on at 10:03; Start 06/25/18 at 10:00; Stop 06/25/18 at 10:59; Status DC Sodium Chloride 1,000 ml @ 100 mls/hr Q10H IV Last administered on 06/25/18at 10:00; Start 06/25/18 at 10:00; Stop 06/25/18 at 19:59; Status DC Amlodipine Besylate (Norvasc) 5 mg DAILY PO ; Start 06/26/18 at 09:00; Stop at 09:00; Status DC Atorvastatin Calcium (Lipitor) 10 mg DAILY PO Last administered on 06/26/18at 07:35; Start 06/26/18 at 09:00 Furosemide (Lasix) 20 mg QMWF PO ; Start 06/27/18 at 16:00 Levetiracetam (Keppra) 500 mg BID PO Last administered on 06/26/18at 20:46; Start 06/25/18 at 21:00 Levothyroxine Sodium (Synthroid) 75 mcg DAILY PO Last administered on at 07:36; Start 06/26/18 at 09:00 Losartan Potassium (Cozaar) 50 mg DAILY PO ; Start 06/26/18 at 09:00; Stop at 09:00; Status DC Potassium Chloride (Klor-Con) 10 meq QMWF PO ; Start 06/27/18 at 16:00 Sertraline HCl (Zoloft) 75 mg DAILY PO Last administered on 06/26/18at 07:35; Start 06/26/18 at 09:00 Pantoprazole Sodium (Protonix) 40 mg DAILYAC PO Last administered on at 07:05; Start 06/26/18 at 07:30 Amlodipine Besylate (Norvasc) 5 mg DAILY PO Last administered on 06/26/18at 07: 36; Start 06/25/18 at 21:00 Losartan Potassium (Cozaar) 50 mg DAILY PO Last administered on 06/26/18at 07: 36; Start 06/25/18 at 21:00 Iohexol (Omnipaque 240 Mg/ml) 50 ml 1X ONCE IV ; Start 06/26/18 at 11:00; Stop 06/26/18 at 11:01; Status DC Iohexol (Omnipaque 300 Mg/ml) 75 ml 1X ONCE IV ; Start 06/26/18 at 11:00; Stop 06/26/18 at 11:01; Status DC Info (CONTRAST GIVEN -- Rx MONITORING) 1 each PRN DAILY PRN MC SEE COMMENTS; Start 06/26/18 at 11:00; Stop 06/28/18 at 10:59 Loperamide HCl (Imodium) 2 mg PRN QID PRN PO DIARRHEA; Start 06/26/18 at 15:00 Colestipol HCl (Colestid) 1 gm BID@10,22 PO Last administered on 06/26/18at 21: 57; Start 06/26/18 at 22:00 Active Scripts Active Reported Synthroid (Levothyroxine Sodium) 75 Mcg Tablet 1 Tab PO DAILY Losartan Potassium 50 Mg Tablet 50 Mg PO DAILY Zoloft (Sertraline Hcl) 50 Mg Tablet 75 Mg PO DAILY Keppra (Levetiracetam) 500 Mg Tablet 1 Tab PO BID Protonix (Pantoprazole Sodium) 20 Mg Tablet.dr 40 Mg PO DAILY Amlodipine Besylate 5 Mg Tablet 5 Mg PO DAILY Atorvastatin Calcium 10 Mg Tablet 1 Tab PO DAILY Potassium Chloride 10 Meq Tab.sr.24h 10 Meq PO QMWF Lasix (Furosemide) 20 Mg Tablet 20 Mg PO QMWF Vitals/I & O Vital Sign - Last 24 Hours 06/26/18 06/26/18 06/26/18 06/26/18 08:00 10:37 14:51 19:00 Temp 97.8 97.9 98.5 97.8 97.9 98.5 Pulse 68 70 70 Resp 20 20 18 B/P (MAP) 131/84 (100) 145/82 (103) 148/85 (106) Pulse Ox 94 95 95 O2 Delivery Room Air Room Air Room Air Room Air 06/26/18 06/26/18 06/27/18 20:00 23:00 03:00 Temp 98.1 97.9 98.1 97.9 Pulse 69 61 Resp 20 20 B/P (MAP) 154/106 (122) 133/76 (95) Pulse Ox 98 97 O2 Delivery Room Air Room Air Room Air Intake and Output 06/26/18 06/26/18 06/27/18 15:00 23:00 07:00 Intake Total 350 ml Output Total 150 ml Balance -150 ml 350 ml NIKIA KOWALSKI MD Jun 27, 2018 07:49
[2018-06-27] MEDS ORDERED: POTASSIUM CHLORIDE 20 MEQ TABLET.ER. PO ONE (08:00)
[2018-06-27] MEDS: ATORVASTATIN CALCIUM 10 MG TABLET. PO SCH (08:48)
[2018-06-27] MEDS: levETIRAcetam 500 MG TABLET PO SCH ×2 (08:48→21:02)
[2018-06-27] MEDS: LEVOTHYROXINE 75 MCG TABLET PO SCH (08:48)
[2018-06-27] MEDS: amLODIPine BESYLATE 5 MG TABLET PO SCH (08:48)
[2018-06-27] MEDS: LOSARTAN POTASSIUM 50 MG TABLET. PO SCH (08:49)
[2018-06-27] MEDS: SERTRALINE 50 MG TABLET. PO SCH (08:49)
[2018-06-27] MEDS: COLESTIPOL HCL 1 GM TABLET PO SCH ×2 (10:16→22:08)
[2018-06-27 10:39] LABS: % BANDS 3 % (0-9); % EOS 3 % (0-5); % LYMPHS 10 % (24-48); % MONOS 14 % (0-10); % SEGS 70 % (35-66); PLT ESTIMATE DECREASED (ADEQUATE)
[2018-06-27 11:00] VITALS: BP 119/67
--- NOTE | 2018-06-27 11:03 | PDOC ---
Subjective: Subjective: Diarrhea is better - has not stooled today - confirmed w/ RN. Says she doesn't like the food - she's old enough she can decide to eat whatever she wants. Sounds like still on full liquids. Now she's worried Colestid will cause constipation. Objective: Vital Signs: Vital Signs Date Time Temp Pulse Resp B/P (MAP) Pulse Ox O2 Delivery O2 Flow Rate FiO2 06/27/18 08:49 69 131/79 06/27/18 08:00 Room Air 06/27/18 07:00 97.5 16 92 97.5 Labs: STOOL CULTURE Final Final report STOOL CULT RES 1 Final Comment No Salmonella or Shigella recovered. CAMPY Preliminary Preliminary report CAMPY RES 1 Preliminary Comment No Campylobacter species isolated. Performed at: [facility] [address], [place], [place] [id number] [employer] Worker: YOEL Siddiqui MD, Phone: [phone] SHIGA TOXIN PENDING Laboratory Tests Test 06/27/18 05:20 White Blood Count 6.8 x10^3/uL Red Blood Count 4.13 x10^6/uL Hemoglobin 13.7 g/dL Hematocrit 39.0 % Mean Corpuscular Volume 94 fL Mean Corpuscular Hemoglobin 33 pg Mean Corpuscular Hemoglobin Concent 35 g/dL Red Cell Distribution Width 14.4 % Platelet Count 136 x10^3/uL Neutrophils (%) (Auto) 74 % Lymphocytes (%) (Auto) 12 % Monocytes (%) (Auto) 12 % Eosinophils (%) (Auto) 2 % Basophils (%) (Auto) 1 % Neutrophils # (Auto) 5.0 x10^3uL Lymphocytes # (Auto) 0.8 x10^3/uL Monocytes # (Auto) 0.8 x10^3/uL Eosinophils # (Auto) 0.2 x10^3/uL Basophils # (Auto) 0.0 x10^3/uL Segmented Neutrophils % 70 % Band Neutrophils % 3 % Lymphocytes % 10 % Monocytes % 14 % Eosinophils % 3 % Platelet Estimate Decreased Sodium Level 140 mmol/L Potassium Level 3.0 mmol/L Chloride Level 103 mmol/L Carbon Dioxide Level 27 mmol/L Anion Gap 10 Blood Urea Nitrogen 5 mg/dL Creatinine 0.6 mg/dL Estimated GFR (Cockcroft-Gault) 94.1 BUN/Creatinine Ratio 8 Glucose Level 115 mg/dL Calcium Level 8.7 mg/dL Total Bilirubin 0.6 mg/dL Aspartate Amino Transf (AST/SGOT) 18 U/L Alanine Aminotransferase (ALT/SGPT) 23 U/L Alkaline Phosphatase 54 U/L Total Protein 6.6 g/dL Albumin 3.3 g/dL Albumin/Globulin Ratio 1.0 PE: GEN: NAD, up to chair LUNGS: CTAB HEART: RRR ABD: S/ND/NT NEURO/PSYCH: A & O 3 A/P: Recurrent diarrhea, +fecal occult - Hgb remains WNL, C Diff neg, prelim stool culture neg CRC screen, h/o adenomatous polyps - last in 2010 -- Better w/ Colestid. Still prefers to avoid colonoscopy. ADAT. No records received from [facility]. CASTILLO GRECO Jun 27, 2018 11:03
[2018-06-27 15:00] VITALS: BP 149/81
[2018-06-27] MEDS: FUROSEMIDE 20 MG TABLET PO SCH (16:29)
[2018-06-27] MEDS: POTASSIUM CHLORIDE 10 MEQ TABLET.ER. PO SCH (16:29)
[2018-06-27 19:00] VITALS: BP 122/75
[2018-06-27 23:00] VITALS: BP 137/74
[2018-06-28 03:00] VITALS: BP 137/69
[2018-06-28] MEDS: PANTOPRAZOLE 40 MG TABLET.DR. PO SCH (06:58)
[2018-06-28 07:00] VITALS: BP 140/100
[2018-06-28] MEDS: levETIRAcetam 500 MG TABLET PO SCH ×2 (09:10→20:28)
[2018-06-28] MEDS: SERTRALINE 50 MG TABLET. PO SCH (09:10)
[2018-06-28] MEDS: ATORVASTATIN CALCIUM 10 MG TABLET. PO SCH (09:10)
[2018-06-28] MEDS: COLESTIPOL HCL 1 GM TABLET PO SCH ×2 (09:10→21:19)
[2018-06-28] MEDS: LEVOTHYROXINE 75 MCG TABLET PO SCH (09:10)
[2018-06-28] MEDS: LOSARTAN POTASSIUM 50 MG TABLET. PO SCH (09:11)
[2018-06-28] MEDS: amLODIPine BESYLATE 5 MG TABLET PO SCH (09:12)
--- NOTE | 2018-06-28 09:22 | PDOC ---
Subjective: Subjective: [place] well yesterday, then overnight had a bowel movement and the nurse told her it was bloody. Feels tired today. Doesn't know if she wants a colonoscopy, needs to call her daughter. No abd pain. Objective: Vital Signs: Vital Signs Date Time Temp Pulse Resp B/P (MAP) Pulse Ox O2 Delivery O2 Flow Rate FiO2 06/28/18 09:12 82 140/100 06/28/18 07:00 98.2 16 97 Room Air 98.2 Labs: STOOL CULTURE Final Final report STOOL CULT RES 1 Final Comment No Salmonella or Shigella recovered. CAMPY Preliminary Preliminary report CAMPY RES 1 Preliminary Comment No Campylobacter species isolated. SHIGA TOXIN Final Negative Negative PE: GEN: NAD - seems worse today LUNGS: clear anteriorly HEART: RRR ABD: S/ND/NT NEURO/PSYCH: A & O 3 In commode - fair amount of darkish red blood w/ bits of brown stool A/P: Hematochezia -- Pt and daughter would like to pursue colonoscopy. D/w Dr. Zurita - plan for this afternoon around 2:00 after prep - see orders. D/w RN - pt concerned w/ being able to drink a lot for prep. CASTILLO GRECO Jun 28, 2018 09:22
[2018-06-28] MEDS ORDERED: BISACODYL 5 MG TABLET.DR. PO ONE ×2 (09:45→10:30)
[2018-06-28] MEDS ORDERED: MAGNESIUM CITRATE 296 ML SOLUTION. PO ONE ×2 (09:45→10:30)
[2018-06-28 10:28] LABS: ALBUMIN 3.6 g/dL (3.4-5.0); CREATININE 0.8 mg/dL (0.6-1.0); GFR 67.5; POTASSIUM 4.4 mmol/L (3.5-5.1); TOTAL BILIRUBIN 0.7 mg/dL (0.2-1.0); TOTAL PROTEIN 7.1 g/dL (6.4-8.2)
[2018-06-28 10:52] LABS: BASO % 1 % (0-3); EOS # 0.1 x10^3/uL (0.0-0.7); EOS % 2 % (0-3); HEMATOCRIT 41.3 % (36.0-47.0); HEMOGLOBIN 13.8 g/dL (12.0-15.5); LYMPH # 0.9 x10^3/uL (1.0-4.8); LYMPH % 11 % (24-48); MEAN CORPUSCULAR HEMOGLOBIN 32 pg (25-35); MEAN CORPUSCULAR HGB CONC 34 g/dL (31-37); MEAN CORPUSCULAR VOLUME 96 fL (79-100); MONO # 0.7 x10^3/uL (0.0-1.1); MONO % 9 % (0-9); NEUT # 6.5 x10^3uL (1.8-7.7); NEUT % 78 % (31-73); PLATELET COUNT 152 x10^3/uL (140-400); RED BLOOD COUNT 4.33 x10^6/uL (3.50-5.40); RED CELL DISTRIBUTION WIDTH 14.2 % (11.5-14.5); WHITE BLOOD COUNT 8.2 x10^3/uL (4.0-11.0)
[2018-06-28 11:00] VITALS: BP 119/74
--- NOTE | 2018-06-28 13:06 | PDOC ---
PROGRESS NOTES History of Present Illness History of Present Illness Pleasant 87yo female w/ PMHx Lymphoma, hypertension, stroke, AFib, appendectomy , cholecystectomy admitted for intermittent diarrhea for at least 2 years. Diarrhea most recently occurred weekend before Thanksgiving after the holiday meal where she lives. Imodium usually helps, but not this time. Occurs "all day and all night" - no stools since yesterday. Associated w/ intermittent lower abdominal cramping and occasional nausea. Has avoided eating due to this , does not like her diet at [facility]. Has had more than one EGD w/ remote h/o ulcer and colonoscopy in 2010 with hyperplastic polyp and 2x adenomatous polyps. No dysphagia or vomiting. No weight loss. Has had GI bleeding in the past requiring transfusions - relates to use of anticoagulants, unclear if specific bleeding source identified. S/p cholecystectomy (no stones). Discussed with her and her daughter bedside, she had CT abdomen rather negative. Ate a full meal last night, [place] well yesterday, then overnight had a bowel movement and the nurse told her it was bloody, confirmed occult positive WBC and Hgb are WNL. Fecal occult was positive. C Diff was negative. Stool culture is pending, but mostly negative. Based on blood in stool and prior massive transfusion she will be going to colonoscopy this afternoon. A/P: Blood in stool - history of rectal bleeding previously multiple colonoscopies, will consult GI Diarrhea - sounds chronic, will f/u stool cultures, immodium ok if c diff negative. HTN - will monitor Afib - rate control H/O CVA - ambulatory FEN - NPO, clear liquid after colonoscopy PPX - SCDs FULL CODE Inpatient for diarrhea of uncertain etiology at least [address] abdomen - 1. Colonic diverticulosis. 2. Mild biliary ductal prominence is probably secondary to the postcholecystectomy state. 3. Hepatic cysts. 4. Other miscellaneous chronic findings as described above. 5. No acute abdominal or pelvic abnormality is detected. Vitals Vitals Vital Signs Date Time Temp Pulse Resp B/P (MAP) Pulse Ox O2 Delivery O2 Flow Rate FiO2 06/28/18 11:00 97.4 61 16 119/74 (89) 94 Room Air 97.4 Physical Exam General: Alert, Oriented X3, Cooperative, No acute distress, Other (No pallor) Heart: Regular rate, No murmurs Lungs: Clear Abdomen: Normal bowel sounds, No tenderness Extremities: No clubbing, No cyanosis, No edema, Normal pulses Skin: No rashes, No breakdown, No significant lesion Labs LABS Laboratory Tests Test 06/28/18 09:55 White Blood Count 8.2 x10^3/uL (4.0-11.0) Red Blood Count 4.33 x10^6/uL (3.50-5.40) Hemoglobin 13.8 g/dL (12.0-15.5) Hematocrit 41.3 % (36.0-47.0) Mean Corpuscular Volume 96 fL (79-100) Mean Corpuscular Hemoglobin 32 pg (25-35) Mean Corpuscular Hemoglobin Concent 34 g/dL (31-37) Red Cell Distribution Width 14.2 % (11.5-14.5) Platelet Count 152 x10^3/uL (140-400) Neutrophils (%) (Auto) 78 % (31-73) Lymphocytes (%) (Auto) 11 % (24-48) Monocytes (%) (Auto) 9 % (0-9) Eosinophils (%) (Auto) 2 % (0-3) Basophils (%) (Auto) 1 % (0-3) Neutrophils # (Auto) 6.5 x10^3uL (1.8-7.7) Lymphocytes # (Auto) 0.9 x10^3/uL (1.0-4.8) Monocytes # (Auto) 0.7 x10^3/uL (0.0-1.1) Eosinophils # (Auto) 0.1 x10^3/uL (0.0-0.7) Basophils # (Auto) 0.0 x10^3/uL (0.0-0.2) Sodium Level 142 mmol/L (136-145) Potassium Level 4.4 mmol/L (3.5-5.1) Chloride Level 105 mmol/L (98-107) Carbon Dioxide Level 28 mmol/L (21-32) Anion Gap 9 (6-14) Blood Urea Nitrogen 9 mg/dL (7-20) Creatinine 0.8 mg/dL (0.6-1.0) Estimated GFR (Cockcroft-Gault) 67.5 BUN/Creatinine Ratio 11 (6-20) Glucose Level 126 mg/dL (70-99) Calcium Level 9.0 mg/dL (8.5-10.1) Total Bilirubin 0.7 mg/dL (0.2-1.0) Aspartate Amino Transf (AST/SGOT) 20 U/L (15-37) Alanine Aminotransferase (ALT/SGPT) 25 U/L (14-59) Alkaline Phosphatase 57 U/L (46-116) Total Protein 7.1 g/dL (6.4-8.2) Albumin 3.6 g/dL (3.4-5.0) Albumin/Globulin Ratio 1.0 (1.0-1.7) Assessment and Plan Assessmemt and Plan Problems Medical Problems: (1) Diarrhea Status: Acute (2) Occult blood in stools Status: Acute (3) Weakness Status: Acute Comment Review of Relevant I have reviewed the following items alfredo (where applicable) has been applied. Labs Laboratory Tests Test 06/27/18 05:20 06/28/18 09:55 White Blood Count 6.8 x10^3/uL (4.0-11.0) 8.2 x10^3/uL (4.0-11.0) Red Blood Count 4.13 x10^6/uL (3.50-5.40) 4.33 x10^6/uL (3.50-5.40) Hemoglobin 13.7 g/dL (12.0-15.5) 13.8 g/dL (12.0-15.5) Hematocrit 39.0 % (36.0-47.0) 41.3 % (36.0-47.0) Mean Corpuscular Volume 94 fL (79-100) 96 fL (79-100) Mean Corpuscular Hemoglobin 33 pg (25-35) 32 pg (25-35) Mean Corpuscular Hemoglobin Concent 35 g/dL (31-37) 34 g/dL (31-37) Red Cell Distribution Width 14.4 % (11.5-14.5) 14.2 % (11.5-14.5) Platelet Count 136 x10^3/uL (140-400) 152 x10^3/uL (140-400) Neutrophils (%) (Auto) 74 % (31-73) 78 % (31-73) Lymphocytes (%) (Auto) 12 % (24-48) 11 % (24-48) Monocytes (%) (Auto) 12 % (0-9) 9 % (0-9) Eosinophils (%) (Auto) 2 % (0-3) 2 % (0-3) Basophils (%) (Auto) 1 % (0-3) 1 % (0-3) Neutrophils # (Auto) 5.0 x10^3uL (1.8-7.7) 6.5 x10^3uL (1.8-7.7) Lymphocytes # (Auto) 0.8 x10^3/uL (1.0-4.8) 0.9 x10^3/uL (1.0-4.8) Monocytes # (Auto) 0.8 x10^3/uL (0.0-1.1) 0.7 x10^3/uL (0.0-1.1) Eosinophils # (Auto) 0.2 x10^3/uL (0.0-0.7) 0.1 x10^3/uL (0.0-0.7) Basophils # (Auto) 0.0 x10^3/uL (0.0-0.2) 0.0 x10^3/uL (0.0-0.2) Segmented Neutrophils % 70 % (35-66) Band Neutrophils % 3 % (0-9) Lymphocytes % 10 % (24-48) Monocytes % 14 % (0-10) Eosinophils % 3 % (0-5) Platelet Estimate Decreased (ADEQUATE) Sodium Level 140 mmol/L (136-145) 142 mmol/L (136-145) Potassium Level 3.0 mmol/L (3.5-5.1) 4.4 mmol/L (3.5-5.1) Chloride Level 103 mmol/L (98-107) 105 mmol/L (98-107) Carbon Dioxide Level 27 mmol/L (21-32) 28 mmol/L (21-32) Anion Gap 10 (6-14) 9 (6-14) Blood Urea Nitrogen 5 mg/dL (7-20) 9 mg/dL (7-20) Creatinine 0.6 mg/dL (0.6-1.0) 0.8 mg/dL (0.6-1.0) Estimated GFR (Cockcroft-Gault) 94.1 67.5 BUN/Creatinine Ratio 8 (6-20) 11 (6-20) Glucose Level 115 mg/dL (70-99) 126 mg/dL (70-99) Calcium Level 8.7 mg/dL (8.5-10.1) 9.0 mg/dL (8.5-10.1) Total Bilirubin 0.6 mg/dL (0.2-1.0) 0.7 mg/dL (0.2-1.0) Aspartate Amino Transf (AST/SGOT) 18 U/L (15-37) 20 U/L (15-37) Alanine Aminotransferase (ALT/SGPT) 23 U/L (14-59) 25 U/L (14-59) Alkaline Phosphatase 54 U/L (46-116) 57 U/L (46-116) Total Protein 6.6 g/dL (6.4-8.2) 7.1 g/dL (6.4-8.2) Albumin 3.3 g/dL (3.4-5.0) 3.6 g/dL (3.4-5.0) Albumin/Globulin Ratio 1.0 (1.0-1.7) 1.0 (1.0-1.7) Laboratory Tests Test 06/28/18 09:55 White Blood Count 8.2 x10^3/uL (4.0-11.0) Red Blood Count 4.33 x10^6/uL (3.50-5.40) Hemoglobin 13.8 g/dL (12.0-15.5) Hematocrit 41.3 % (36.0-47.0) Mean Corpuscular Volume 96 fL (79-100) Mean Corpuscular Hemoglobin 32 pg (25-35) Mean Corpuscular Hemoglobin Concent 34 g/dL (31-37) Red Cell Distribution Width 14.2 % (11.5-14.5) Platelet Count 152 x10^3/uL (140-400) Neutrophils (%) (Auto) 78 % (31-73) Lymphocytes (%) (Auto) 11 % (24-48) Monocytes (%) (Auto) 9 % (0-9) Eosinophils (%) (Auto) 2 % (0-3) Basophils (%) (Auto) 1 % (0-3) Neutrophils # (Auto) 6.5 x10^3uL (1.8-7.7) Lymphocytes # (Auto) 0.9 x10^3/uL (1.0-4.8) Monocytes # (Auto) 0.7 x10^3/uL (0.0-1.1) Eosinophils # (Auto) 0.1 x10^3/uL (0.0-0.7) Basophils # (Auto) 0.0 x10^3/uL (0.0-0.2) Sodium Level 142 mmol/L (136-145) Potassium Level 4.4 mmol/L (3.5-5.1) Chloride Level 105 mmol/L (98-107) Carbon Dioxide Level 28 mmol/L (21-32) Anion Gap 9 (6-14) Blood Urea Nitrogen 9 mg/dL (7-20) Creatinine 0.8 mg/dL (0.6-1.0) Estimated GFR (Cockcroft-Gault) 67.5 BUN/Creatinine Ratio 11 (6-20) Glucose Level 126 mg/dL (70-99) Calcium Level 9.0 mg/dL (8.5-10.1) Total Bilirubin 0.7 mg/dL (0.2-1.0) Aspartate Amino Transf (AST/SGOT) 20 U/L (15-37) Alanine Aminotransferase (ALT/SGPT) 25 U/L (14-59) Alkaline Phosphatase 57 U/L (46-116) Total Protein 7.1 g/dL (6.4-8.2) Albumin 3.6 g/dL (3.4-5.0) Albumin/Globulin Ratio 1.0 (1.0-1.7) Microbiology 06/25/18 Stool Culture - Final, Resulted 06/25/18 Stool Culture Result 1 (JAMISON) - Final, Resulted 06/25/18 Campylobacter Antigen Assay - Preliminary, Resulted 06/25/18 Campylobactor Result 1 - Preliminary, Resulted 06/25/18 Shiga Toxin Test - Final, Resulted Medications Current Medications Sodium Chloride 500 ml @ 500 mls/hr 1X ONCE IV Last administered on at 10:03; Start 06/25/18 at 10:00; Stop 06/25/18 at 10:59; Status DC Sodium Chloride 1,000 ml @ 100 mls/hr Q10H IV Last administered on 06/25/18at 10:00; Start 06/25/18 at 10:00; Stop 06/25/18 at 19:59; Status DC Amlodipine Besylate (Norvasc) 5 mg DAILY PO ; Start 06/26/18 at 09:00; Stop at 09:00; Status DC Atorvastatin Calcium (Lipitor) 10 mg DAILY PO Last administered on 06/28/18at 09:10; Start 06/26/18 at 09:00 Furosemide (Lasix) 20 mg QMWF PO Last administered on 06/27/18at 16:29; Start 06/27/18 at 16:00 Levetiracetam (Keppra) 500 mg BID PO Last administered on 06/28/18at 09:10; Start 06/25/18 at 21:00 Levothyroxine Sodium (Synthroid) 75 mcg DAILY PO Last administered on at 09:10; Start 06/26/18 at 09:00 Losartan Potassium (Cozaar) 50 mg DAILY PO ; Start 06/26/18 at 09:00; Stop at 09:00; Status DC Potassium Chloride (Klor-Con) 10 meq QMWF PO Last administered on 06/27/18at 16 :29; Start 06/27/18 at 16:00 Sertraline HCl (Zoloft) 75 mg DAILY PO Last administered on 06/28/18at 09:10; Start 06/26/18 at 09:00 Pantoprazole Sodium (Protonix) 40 mg DAILYAC PO Last administered on at 06:58; Start 06/26/18 at 07:30 Amlodipine Besylate (Norvasc) 5 mg DAILY PO Last administered on 06/28/18at 09: 12; Start 06/25/18 at 21:00 Losartan Potassium (Cozaar) 50 mg DAILY PO Last administered on 06/28/18at 09: 11; Start 06/25/18 at 21:00 Iohexol (Omnipaque 240 Mg/ml) 50 ml 1X ONCE IV ; Start 06/26/18 at 11:00; Stop 06/26/18 at 11:01; Status DC Iohexol (Omnipaque 300 Mg/ml) 75 ml 1X ONCE IV ; Start 06/26/18 at 11:00; Stop 06/26/18 at 11:01; Status DC Info (CONTRAST GIVEN -- Rx MONITORING) 1 each PRN DAILY PRN MC SEE COMMENTS; Start 06/26/18 at 11:00; Stop 06/28/18 at 10:59; Status DC Loperamide HCl (Imodium) 2 mg PRN QID PRN PO DIARRHEA; Start 06/26/18 at 15:00 Colestipol HCl (Colestid) 1 gm BID@10,22 PO Last administered on 06/28/18at 09: 10; Start 06/26/18 at 22:00 Potassium Chloride (Klor-Con) 40 meq 1X ONCE PO Last administered on at 08:48; Start 06/27/18 at 08:00; Stop 06/27/18 at 08:01; Status DC Magnesium Citrate (Citroma) 296 ml 1X ONCE PO Last administered on 06/28/18at 09:52; Start 06/28/18 at 09:45; Stop 06/28/18 at 09:46; Status DC Magnesium Citrate (Citroma) 296 ml 1X ONCE PO Last administered on 06/28/18at 10:25; Start 06/28/18 at 10:30; Stop 06/28/18 at 10:31; Status DC Bisacodyl (Dulcolax Tab) 10 mg 1X ONCE PO Last administered on 06/28/18at 09: 53; Start 06/28/18 at 09:45; Stop 06/28/18 at 09:46; Status DC Bisacodyl (Dulcolax Tab) 10 mg 1X ONCE PO Last administered on 06/28/18at 10: 25; Start 06/28/18 at 10:30; Stop 06/28/18 at 10:31; Status DC Active Scripts Active Reported Synthroid (Levothyroxine Sodium) 75 Mcg Tablet 1 Tab PO DAILY Losartan Potassium 50 Mg Tablet 50 Mg PO DAILY Zoloft (Sertraline Hcl) 50 Mg Tablet 75 Mg PO DAILY Keppra (Levetiracetam) 500 Mg Tablet 1 Tab PO BID Protonix (Pantoprazole Sodium) 20 Mg Tablet.dr 40 Mg PO DAILY Amlodipine Besylate 5 Mg Tablet 5 Mg PO DAILY Atorvastatin Calcium 10 Mg Tablet 1 Tab PO DAILY Potassium Chloride 10 Meq Tab.sr.24h 10 Meq PO QMWF Lasix (Furosemide) 20 Mg Tablet 20 Mg PO QMWF Vitals/I & O Vital Sign - Last 24 Hours 06/27/18 06/27/18 06/27/18 06/27/18 15:00 19:00 20:00 23:00 Temp 97.5 97.5 97.7 97.5 97.5 97.7 Pulse 65 79 79 Resp 16 18 18 B/P (MAP) 149/81 (103) 122/75 (91) 137/74 (95) Pulse Ox 95 93 99 O2 Delivery Room Air Room Air Room Air Room Air 06/28/18 06/28/18 06/28/18 06/28/18 03:00 07:00 08:00 09:11 Temp 98.2 98.2 98.2 98.2 Pulse 67 82 82 Resp 18 16 B/P (MAP) 137/69 (91) 140/100 (113) 140/100 Pulse Ox 94 97 O2 Delivery Room Air Room Air Room Air 06/28/18 06/28/18 09:12 11:00 Temp 97.4 97.4 Pulse 82 61 Resp 16 B/P (MAP) 140/100 119/74 (89) Pulse Ox 94 O2 Delivery Room Air Intake and Output 06/27/18 06/27/18 06/28/18 15:00 23:00 07:00 Intake Total 240 ml 120 ml Output Total 0 ml Balance 240 ml 120 ml 0 ml NIKIA KOWALSKI MD Jun 28, 2018 13:06
[2018-06-28] MEDS: IV RINGERS,LACTATED 1000ML 1,000 ML IV SCH ×2 (13:41→19:41)
[2018-06-28] MEDS ORDERED: MIDAZOLAM HCL/PF 2 MG/2 ML VIAL. IV PRN (13:45)
[2018-06-28] MEDS ORDERED: fentaNYL PF VIAL 100 MCG/2 ML VIAL IV PRN ×2 (13:45)
[2018-06-28] MEDS ORDERED: LIDOCAINE 1% PF 2 ML VIAL. ID PRN (13:45)
[2018-06-28] MEDS ORDERED: PROPOFOL 20 ML IV ONE (14:09)
--- NOTE | 2018-06-28 14:37 | PDOC4 ---
PROCEDURE Procedure Colonoscopy for bleeding anesthesia with propofol Findings- liquid stool and dark blood in rectum and sigmoid - numerous large diverticulae in sigmoid and descending colon- evidence of recent bleeding but no active bleeding seen. Exam to ascending colon- limited by poor prep and looping/stricture Plan- monitor liquid diet if further active bleeding, then consider bleeding scan TRACY LAW MD Jun 28, 2018 14:37
[2018-06-28 15:00] VITALS: BP 123/88
[2018-06-28 19:00] VITALS: BP 100/46
[2018-06-28 23:00] VITALS: BP 123/83
[2018-06-29 03:00] VITALS: BP 116/80
[2018-06-29] MEDS: PANTOPRAZOLE 40 MG TABLET.DR. PO SCH (06:00)
[2018-06-29 07:00] VITALS: BP 124/74
[2018-06-29] MEDS: amLODIPine BESYLATE 5 MG TABLET PO SCH ×3 (09:00→21:48)
[2018-06-29] MEDS: LEVOTHYROXINE 75 MCG TABLET PO SCH (09:14)
[2018-06-29] MEDS: levETIRAcetam 500 MG TABLET PO SCH ×2 (09:15→21:47)
[2018-06-29] MEDS: SERTRALINE 50 MG TABLET. PO SCH (09:15)
[2018-06-29] MEDS: LOSARTAN POTASSIUM 50 MG TABLET. PO SCH (09:16)
[2018-06-29] MEDS: ATORVASTATIN CALCIUM 10 MG TABLET. PO SCH (09:17)
[2018-06-29 11:00] VITALS: BP 117/62
--- NOTE | 2018-06-29 11:04 | PDOC ---
Subjective: Subjective: Asked how she was doing, "I don't know." Denies pain, not sure about bleeding because "I don't look." Objective: Objective: Reviewed w/ RN - 1 stool this morning, no blood, c/o liquid diet. Vital Signs: Vital Signs Date Time Temp Pulse Resp B/P (MAP) Pulse Ox O2 Delivery O2 Flow Rate FiO2 06/29/18 09:16 77 124/74 06/29/18 08:00 Room Air 06/29/18 07:00 97.7 16 98 97.7 06/29/18 03:00 2.0 Imaging: Colonoscopy 06/28/18 liquid stool and dark blood in rectum and sigmoid - numerous large diverticulae in sigmoid and descending colon- evidence of recent bleeding but no active bleeding seen. Exam to ascending colon- limited by poor prep and looping/stricture PE: GEN: NAD, getting up to commode w/ staff LUNGS: room air HEART: RRR ABD: S/ND/NT NEURO/PSYCH: A & O 3 A/P: Diarrhea/hematochezia -limited colonoscopy as above, suspected resolving diverticular bleed -- Monitor labs and for bleeding. Will cautiously advance to full liquids, monitor labs and for recurrent bleeding. CASTILLO GRECO Jun 29, 2018 11:03
[2018-06-29] MEDS: COLESTIPOL HCL 1 GM TABLET PO SCH ×2 (11:19→21:47)
--- NOTE | 2018-06-29 13:32 | PDOC ---
PROGRESS NOTES Chief Complaint Chief Complaint Blood in stool Diarrhea HTN Afib H/O CVA History of Present Illness History of Present Illness Pleasant 87yo female w/ PMHx Lymphoma, hypertension, stroke, AFib, appendectomy , cholecystectomy admitted for intermittent diarrhea for at least 2 years. Diarrhea most recently occurred weekend before Thanksgiving after the holiday meal where she lives. Imodium usually helps, but not this time. Occurs "all day and all night" - no stools since yesterday. Associated w/ intermittent lower abdominal cramping and occasional nausea. Has avoided eating due to this , does not like her diet at [facility]. Has had more than one EGD w/ remote h/o ulcer and colonoscopy in 2010 with hyperplastic polyp and 2x adenomatous polyps. No dysphagia or vomiting. No weight loss. Has had GI bleeding in the past requiring transfusions - relates to use of anticoagulants, unclear if specific bleeding source identified. S/p cholecystectomy (no stones). Discussed with her and her daughter bedside, she had CT abdomen rather negative. Colonoscopy 06/28/18 was poor prep and diverticulosis with no active bleeding identified. No further blood in stool yet, but has abdominal pain and swelling and loose stools. WBC and Hgb are WNL. Fecal occult was positive. C Diff was negative. Stool culture is pending, but mostly negative. A/P: Blood in stool - history of rectal bleeding previously multiple colonoscopies, appreciate GI recs, diverticulosis treatment Diarrhea - sounds chronic, will f/u stool cultures, immodium ok if c diff negative. Will give psyllium as well. HTN - will monitor Afib - rate control H/O CVA - ambulatory FEN - NPO, clear liquid after colonoscopy PPX - SCDs FULL CODE Inpatient for diarrhea of uncertain etiology at least [address] abdomen - 1. Colonic diverticulosis. 2. Mild biliary ductal prominence is probably secondary to the postcholecystectomy state. 3. Hepatic cysts. 4. Other miscellaneous chronic findings as described above. 5. No acute abdominal or pelvic abnormality is detected. Vitals Vitals Vital Signs Date Time Temp Pulse Resp B/P (MAP) Pulse Ox O2 Delivery O2 Flow Rate FiO2 06/29/18 11:00 97.9 63 16 117/62 (80) 95 Room Air 97.9 06/29/18 03:00 2.0 Physical Exam General: Alert, Oriented X3, Cooperative, No acute distress, Other (No pallor) Heart: Regular rate, No murmurs Lungs: Clear Abdomen: Normal bowel sounds, No tenderness Extremities: No clubbing, No cyanosis, No edema, Normal pulses Skin: No rashes, No breakdown, No significant lesion Assessment and Plan Assessmemt and Plan Problems Medical Problems: (1) Diarrhea Status: Acute (2) Occult blood in stools Status: Acute (3) Weakness Status: Acute Comment Review of Relevant I have reviewed the following items alfredo (where applicable) has been applied. Labs Laboratory Tests Test 06/28/18 09:55 White Blood Count 8.2 x10^3/uL (4.0-11.0) Red Blood Count 4.33 x10^6/uL (3.50-5.40) Hemoglobin 13.8 g/dL (12.0-15.5) Hematocrit 41.3 % (36.0-47.0) Mean Corpuscular Volume 96 fL (79-100) Mean Corpuscular Hemoglobin 32 pg (25-35) Mean Corpuscular Hemoglobin Concent 34 g/dL (31-37) Red Cell Distribution Width 14.2 % (11.5-14.5) Platelet Count 152 x10^3/uL (140-400) Neutrophils (%) (Auto) 78 % (31-73) Lymphocytes (%) (Auto) 11 % (24-48) Monocytes (%) (Auto) 9 % (0-9) Eosinophils (%) (Auto) 2 % (0-3) Basophils (%) (Auto) 1 % (0-3) Neutrophils # (Auto) 6.5 x10^3uL (1.8-7.7) Lymphocytes # (Auto) 0.9 x10^3/uL (1.0-4.8) Monocytes # (Auto) 0.7 x10^3/uL (0.0-1.1) Eosinophils # (Auto) 0.1 x10^3/uL (0.0-0.7) Basophils # (Auto) 0.0 x10^3/uL (0.0-0.2) Sodium Level 142 mmol/L (136-145) Potassium Level 4.4 mmol/L (3.5-5.1) Chloride Level 105 mmol/L (98-107) Carbon Dioxide Level 28 mmol/L (21-32) Anion Gap 9 (6-14) Blood Urea Nitrogen 9 mg/dL (7-20) Creatinine 0.8 mg/dL (0.6-1.0) Estimated GFR (Cockcroft-Gault) 67.5 BUN/Creatinine Ratio 11 (6-20) Glucose Level 126 mg/dL (70-99) Calcium Level 9.0 mg/dL (8.5-10.1) Total Bilirubin 0.7 mg/dL (0.2-1.0) Aspartate Amino Transf (AST/SGOT) 20 U/L (15-37) Alanine Aminotransferase (ALT/SGPT) 25 U/L (14-59) Alkaline Phosphatase 57 U/L (46-116) Total Protein 7.1 g/dL (6.4-8.2) Albumin 3.6 g/dL (3.4-5.0) Albumin/Globulin Ratio 1.0 (1.0-1.7) Microbiology 06/25/18 Stool Culture - Final, Complete 06/25/18 Stool Culture Result 1 (JAMISON) - Final, Complete 06/25/18 Campylobacter Antigen Assay - Final, Complete 06/25/18 Campylobactor Result 1 - Final, Complete 06/25/18 Shiga Toxin Test - Final, Complete 06/26/18 Urine Culture - Preliminary, Resulted 06/26/18 Urine Culture Result 1 (JAMISON) - Preliminary, Resulted Medications Current Medications Sodium Chloride 500 ml @ 500 mls/hr 1X ONCE IV Last administered on at 10:03; Start 06/25/18 at 10:00; Stop 06/25/18 at 10:59; Status DC Sodium Chloride 1,000 ml @ 100 mls/hr Q10H IV Last administered on 06/25/18at 10:00; Start 06/25/18 at 10:00; Stop 06/25/18 at 19:59; Status DC Amlodipine Besylate (Norvasc) 5 mg DAILY PO ; Start 06/26/18 at 09:00; Stop at 09:00; Status DC Atorvastatin Calcium (Lipitor) 10 mg DAILY PO Last administered on 06/29/18at 09:17; Start 06/26/18 at 09:00 Furosemide (Lasix) 20 mg QMWF PO Last administered on 06/27/18at 16:29; Start 06/27/18 at 16:00 Levetiracetam (Keppra) 500 mg BID PO Last administered on 06/29/18at 09:15; Start 06/25/18 at 21:00 Levothyroxine Sodium (Synthroid) 75 mcg DAILY PO Last administered on at 09:14; Start 06/26/18 at 09:00 Losartan Potassium (Cozaar) 50 mg DAILY PO ; Start 06/26/18 at 09:00; Stop at 09:00; Status DC Potassium Chloride (Klor-Con) 10 meq QMWF PO Last administered on 06/27/18at 16 :29; Start 06/27/18 at 16:00 Sertraline HCl (Zoloft) 75 mg DAILY PO Last administered on 06/29/18at 09:15; Start 06/26/18 at 09:00 Pantoprazole Sodium (Protonix) 40 mg DAILYAC PO Last administered on at 06:00; Start 06/26/18 at 07:30 Amlodipine Besylate (Norvasc) 5 mg DAILY PO Last administered on 06/28/18at 09: 12; Start 06/25/18 at 21:00; Stop 06/29/18 at 12:57; Status DC Losartan Potassium (Cozaar) 50 mg DAILY PO Last administered on 06/29/18at 09: 16; Start 06/25/18 at 21:00 Iohexol (Omnipaque 240 Mg/ml) 50 ml 1X ONCE IV ; Start 06/26/18 at 11:00; Stop 06/26/18 at 11:01; Status DC Iohexol (Omnipaque 300 Mg/ml) 75 ml 1X ONCE IV ; Start 06/26/18 at 11:00; Stop 06/26/18 at 11:01; Status DC Info (CONTRAST GIVEN -- Rx MONITORING) 1 each PRN DAILY PRN MC SEE COMMENTS; Start 06/26/18 at 11:00; Stop 06/28/18 at 10:59; Status DC Loperamide HCl (Imodium) 2 mg PRN QID PRN PO DIARRHEA Last administered on at 11:22; Start 06/26/18 at 15:00 Colestipol HCl (Colestid) 1 gm BID@ PO Last administered on 06/29/18at 11: 19; Start 06/26/18 at 22:00 Potassium Chloride (Klor-Con) 40 meq 1X ONCE PO Last administered on at 08:48; Start 06/27/18 at 08:00; Stop 06/27/18 at 08:01; Status DC Magnesium Citrate (Citroma) 296 ml 1X ONCE PO Last administered on 06/28/18at 09:52; Start 06/28/18 at 09:45; Stop 06/28/18 at 09:46; Status DC Magnesium Citrate (Citroma) 296 ml 1X ONCE PO Last administered on 06/28/18at 10:25; Start 06/28/18 at 10:30; Stop 06/28/18 at 10:31; Status DC Bisacodyl (Dulcolax Tab) 10 mg 1X ONCE PO Last administered on 06/28/18at 09: 53; Start 06/28/18 at 09:45; Stop 06/28/18 at 09:46; Status DC Bisacodyl (Dulcolax Tab) 10 mg 1X ONCE PO Last administered on 06/28/18at 10: 25; Start 06/28/18 at 10:30; Stop 06/28/18 at 10:31; Status DC Midazolam HCl (Versed) 2 mg PRN 1X PRN IV PRIOR TO PROCEDURE; Start 06/28/18 at 13:45; Stop 06/29/18 at 13:44 Fentanyl Citrate (Fentanyl 2ml Vial) 25 mcg PRN Q5MIN PRN IV X 2 DOSES FOR PAIN ; Start 06/28/18 at 13:45; Stop 06/29/18 at 13:44 Fentanyl Citrate (Fentanyl 2ml Vial) 50 mcg PRN Q5MIN PRN IV X 2 DOSES FOR PAIN ; Start 06/28/18 at 13:45; Stop 06/29/18 at 13:44 Ringer's Solution 1,000 ml @ 125 mls/hr Q8H IV Last administered on at 13:41; Start 06/28/18 at 13:31; Stop 06/29/18 at 01:30; Status DC Lidocaine HCl (Xylocaine-Mpf 1% 2ml Vial) 2 ml 1X PRN PRN ID IV START; Start 06/28/18 at 13:45; Stop 06/29/18 at 13:44 Propofol 20 ml @ As Directed STK-MED ONCE IV ; Start 06/28/18 at 14:09; Stop 06/28/18 at 14:10; Status DC Amlodipine Besylate (Norvasc) 5 mg HS PO ; Start 06/29/18 at 21:00 Active Scripts Active Reported Synthroid (Levothyroxine Sodium) 75 Mcg Tablet 1 Tab PO DAILY Losartan Potassium 50 Mg Tablet 50 Mg PO DAILY Zoloft (Sertraline Hcl) 50 Mg Tablet 75 Mg PO DAILY Keppra (Levetiracetam) 500 Mg Tablet 1 Tab PO BID Protonix (Pantoprazole Sodium) 20 Mg Tablet.dr 40 Mg PO DAILY Amlodipine Besylate 5 Mg Tablet 5 Mg PO DAILY Atorvastatin Calcium 10 Mg Tablet 1 Tab PO DAILY Potassium Chloride 10 Meq Tab.sr.24h 10 Meq PO QMWF Lasix (Furosemide) 20 Mg Tablet 20 Mg PO QMWF Vitals/I & O Vital Sign - Last 24 Hours 06/28/18 06/28/18 06/28/18 06/28/18 13:36 13:38 14:30 14:45 Temp 97.3 97.3 97.3 97.3 97.3 97.3 Pulse 79 79 75 Resp 18 18 18 B/P (MAP) 88/63 103/59 Pulse Ox 92 97 97 O2 Delivery Room Air Room Air Room Air O2 Flow Rate 2 06/28/18 06/28/18 06/28/18 06/28/18 15:00 19:00 20:00 23:00 Temp 96.6 97.9 97.9 96.6 97.9 97.9 Pulse 77 70 79 Resp 18 18 18 B/P (MAP) 123/88 (100) 100/46 (64) 123/83 (96) Pulse Ox 94 92 98 O2 Delivery Room Air Room Air Room Air Room Air O2 Flow Rate 2.0 2.0 06/29/18 06/29/18 06/29/18 06/29/18 03:00 07:00 08:00 09:16 Temp 97.9 97.7 97.9 97.7 Pulse 69 77 77 Resp 18 16 B/P (MAP) 116/80 (92) 124/74 (91) 124/74 Pulse Ox 94 98 O2 Delivery Room Air Room Air Room Air O2 Flow Rate 2.0 06/29/18 11:00 Temp 97.9 97.9 Pulse 63 Resp 16 B/P (MAP) 117/62 (80) Pulse Ox 95 O2 Delivery Room Air Intake and Output 06/28/18 06/28/18 06/29/18 15:00 23:00 07:00 Intake Total 0 ml 360 ml Balance 0 ml 360 ml NIKIA KOWALSKI MD Jun 29, 2018 13:32
[2018-06-29 15:00] VITALS: BP 116/72
[2018-06-29] MEDS: PSYLLIUM HUSK (SUGAR FREE) 1 PKT PACKET PO SCH (16:48)
[2018-06-29] MEDS: POTASSIUM CHLORIDE 10 MEQ TABLET.ER. PO SCH (16:49)
[2018-06-29] MEDS: FUROSEMIDE 20 MG TABLET PO SCH (16:49)
[2018-06-29 19:00] VITALS: BP 146/88
[2018-06-29 23:00] VITALS: BP 115/77
[2018-06-30 03:00] VITALS: BP 106/70
[2018-06-30 05:09] LABS: HEMATOCRIT 35.9 % (36.0-47.0); HEMOGLOBIN 12.3 g/dL (12.0-15.5); RED BLOOD COUNT 3.8 x10^6/uL (3.50-5.40); RED CELL DISTRIBUTION WIDTH 14.3 % (11.5-14.5); WHITE BLOOD COUNT 7.6 x10^3/uL (4.0-11.0)
[2018-06-30 07:00] VITALS: BP 153/82
[2018-06-30] MEDS: PANTOPRAZOLE 40 MG TABLET.DR. PO SCH (08:48)
[2018-06-30] MEDS: LOSARTAN POTASSIUM 50 MG TABLET. PO SCH (08:49)
[2018-06-30] MEDS: ATORVASTATIN CALCIUM 10 MG TABLET. PO SCH (08:49)
[2018-06-30] MEDS: LEVOTHYROXINE 75 MCG TABLET PO SCH (08:49)
[2018-06-30] MEDS: levETIRAcetam 500 MG TABLET PO SCH ×2 (08:49→21:33)
[2018-06-30] MEDS: SERTRALINE 50 MG TABLET. PO SCH (08:50)
[2018-06-30] MEDS: PSYLLIUM HUSK (SUGAR FREE) 1 PKT PACKET PO SCH ×2 (08:54→18:22)
[2018-06-30] MEDS: COLESTIPOL HCL 1 GM TABLET PO SCH ×2 (10:16→21:32)
[2018-06-30 11:00] VITALS: BP 126/75
[2018-06-30 15:00] VITALS: BP 154/84
[2018-06-30 19:00] VITALS: BP 134/82
--- NOTE | 2018-06-30 20:57 | PDOC ---
PROGRESS NOTES Chief Complaint Chief Complaint Blood in stool Diarrhea HTN Afib H/O CVA History of Present Illness History of Present Illness Pleasant 87yo female w/ PMHx Lymphoma, hypertension, stroke, AFib, appendectomy , cholecystectomy admitted for intermittent diarrhea for at least 2 years. Diarrhea most recently occurred weekend before Thanksgiving after the holiday meal where she lives. Imodium usually helps, but not this time. Occurs "all day and all night" - no stools since yesterday. Associated w/ intermittent lower abdominal cramping and occasional nausea. Has avoided eating due to this , does not like her diet at [facility]. Has had more than one EGD w/ remote h/o ulcer and colonoscopy in 2010 with hyperplastic polyp and 2x adenomatous polyps. No dysphagia or vomiting. No weight loss. Has had GI bleeding in the past requiring transfusions - relates to use of anticoagulants, unclear if specific bleeding source identified. S/p cholecystectomy (no stones). Discussed with her and her daughter bedside, she had CT abdomen rather negative. Colonoscopy 06/28/18 was poor prep and diverticulosis with no active bleeding identified. No further blood in stool yet, but has abdominal pain and swelling and loose stools. WBC and Hgb are WNL. Fecal occult was positive. C Diff was negative. Stool culture is pending, but mostly negative. A/P: Blood in stool - history of rectal bleeding previously multiple colonoscopies, appreciate GI recs, diverticulosis treatment -resolved Diarrhea - sounds chronic, will f/u stool cultures, immodium ok if c diff negative. Will give psyllium as well. - resolved HTN - will monitor Afib - rate control H/O CVA - ambulatory FEN - NPO, clear liquid after colonoscopy --> advance to solids PPX - SCDs FULL CODE Inpatient for diarrhea of uncertain etiology at least [address] abdomen - 1. Colonic diverticulosis. 2. Mild biliary ductal prominence is probably secondary to the postcholecystectomy state. 3. Hepatic cysts. 4. Other miscellaneous chronic findings as described above. 5. No acute abdominal or pelvic abnormality is detected. Vitals Vitals Vital Signs Date Time Temp Pulse Resp B/P (MAP) Pulse Ox O2 Delivery O2 Flow Rate FiO2 06/30/18 19:00 98.7 59 18 134/82 (99) 92 Room Air 98.7 06/30/18 08:00 2.0 Physical Exam General: Alert, Oriented X3, Cooperative, No acute distress, Other (No pallor) Heart: Regular rate, No murmurs Lungs: Clear Abdomen: Normal bowel sounds, No tenderness Extremities: No clubbing, No cyanosis, No edema, Normal pulses Skin: No rashes, No breakdown, No significant lesion Labs LABS Laboratory Tests Test 06/30/18 04:05 White Blood Count 7.6 x10^3/uL (4.0-11.0) Red Blood Count 3.80 x10^6/uL (3.50-5.40) Hemoglobin 12.3 g/dL (12.0-15.5) Hematocrit 35.9 % (36.0-47.0) Mean Corpuscular Volume 95 fL (79-100) Mean Corpuscular Hemoglobin 32 pg (25-35) Mean Corpuscular Hemoglobin Concent 34 g/dL (31-37) Red Cell Distribution Width 14.3 % (11.5-14.5) Platelet Count 135 x10^3/uL (140-400) Assessment and Plan Assessmemt and Plan Problems Medical Problems: (1) Diarrhea Status: Acute (2) Occult blood in stools Status: Acute (3) Weakness Status: Acute Comment Review of Relevant I have reviewed the following items alfredo (where applicable) has been applied. Labs Laboratory Tests Test 06/30/18 04:05 White Blood Count 7.6 x10^3/uL (4.0-11.0) Red Blood Count 3.80 x10^6/uL (3.50-5.40) Hemoglobin 12.3 g/dL (12.0-15.5) Hematocrit 35.9 % (36.0-47.0) Mean Corpuscular Volume 95 fL (79-100) Mean Corpuscular Hemoglobin 32 pg (25-35) Mean Corpuscular Hemoglobin Concent 34 g/dL (31-37) Red Cell Distribution Width 14.3 % (11.5-14.5) Platelet Count 135 x10^3/uL (140-400) Laboratory Tests Test 06/30/18 04:05 White Blood Count 7.6 x10^3/uL (4.0-11.0) Red Blood Count 3.80 x10^6/uL (3.50-5.40) Hemoglobin 12.3 g/dL (12.0-15.5) Hematocrit 35.9 % (36.0-47.0) Mean Corpuscular Volume 95 fL (79-100) Mean Corpuscular Hemoglobin 32 pg (25-35) Mean Corpuscular Hemoglobin Concent 34 g/dL (31-37) Red Cell Distribution Width 14.3 % (11.5-14.5) Platelet Count 135 x10^3/uL (140-400) Microbiology 06/25/18 Stool Culture - Final, Complete 06/25/18 Stool Culture Result 1 (JAMISON) - Final, Complete 06/25/18 Campylobacter Antigen Assay - Final, Complete 06/25/18 Campylobactor Result 1 - Final, Complete 06/25/18 Shiga Toxin Test - Final, Complete 06/26/18 Urine Culture - Final, Complete 06/26/18 Urine Culture Result 1 (JAMISON) - Final, Complete 06/26/18 Antimicrobic Susceptibility - Final, Complete Medications Current Medications Sodium Chloride 500 ml @ 500 mls/hr 1X ONCE IV Last administered on at 10:03; Start 06/25/18 at 10:00; Stop 06/25/18 at 10:59; Status DC Sodium Chloride 1,000 ml @ 100 mls/hr Q10H IV Last administered on 06/25/18at 10:00; Start 06/25/18 at 10:00; Stop 06/25/18 at 19:59; Status DC Amlodipine Besylate (Norvasc) 5 mg DAILY PO ; Start 06/26/18 at 09:00; Stop at 09:00; Status DC Atorvastatin Calcium (Lipitor) 10 mg DAILY PO Last administered on 06/30/18at 08 :49; Start 06/26/18 at 09:00 Furosemide (Lasix) 20 mg QMWF PO Last administered on 06/29/18at 16:49; Start 06/27/18 at 16:00 Levetiracetam (Keppra) 500 mg BID PO Last administered on 06/30/18at 08:49; Start 06/25/18 at 21:00 Levothyroxine Sodium (Synthroid) 75 mcg DAILY PO Last administered on at 08:49; Start 06/26/18 at 09:00 Losartan Potassium (Cozaar) 50 mg DAILY PO ; Start 06/26/18 at 09:00; Stop at 09:00; Status DC Potassium Chloride (Klor-Con) 10 meq QMWF PO Last administered on 06/29/18at 16 :49; Start 06/27/18 at 16:00 Sertraline HCl (Zoloft) 75 mg DAILY PO Last administered on 06/30/18at 08:50; Start 06/26/18 at 09:00 Pantoprazole Sodium (Protonix) 40 mg DAILYAC PO Last administered on 06/30/18at 08:48; Start 06/26/18 at 07:30 Amlodipine Besylate (Norvasc) 5 mg DAILY PO Last administered on 06/28/18at 09: 12; Start 06/25/18 at 21:00; Stop 06/29/18 at 12:57; Status DC Losartan Potassium (Cozaar) 50 mg DAILY PO Last administered on 06/30/18at 08:49 ; Start 06/25/18 at 21:00 Iohexol (Omnipaque 240 Mg/ml) 50 ml 1X ONCE IV ; Start 06/26/18 at 11:00; Stop 06/26/18 at 11:01; Status DC Iohexol (Omnipaque 300 Mg/ml) 75 ml 1X ONCE IV ; Start 06/26/18 at 11:00; Stop 06/26/18 at 11:01; Status DC Info (CONTRAST GIVEN -- Rx MONITORING) 1 each PRN DAILY PRN MC SEE COMMENTS; Start 06/26/18 at 11:00; Stop 06/28/18 at 10:59; Status DC Loperamide HCl (Imodium) 2 mg PRN QID PRN PO DIARRHEA Last administered on at 11:22; Start 06/26/18 at 15:00 Colestipol HCl (Colestid) 1 gm BID@ PO Last administered on 06/30/18at 10: 16; Start 06/26/18 at 22:00 Potassium Chloride (Klor-Con) 40 meq 1X ONCE PO Last administered on at 08:48; Start 06/27/18 at 08:00; Stop 06/27/18 at 08:01; Status DC Magnesium Citrate (Citroma) 296 ml 1X ONCE PO Last administered on 06/28/18at 09:52; Start 06/28/18 at 09:45; Stop 06/28/18 at 09:46; Status DC Magnesium Citrate (Citroma) 296 ml 1X ONCE PO Last administered on 06/28/18at 10:25; Start 06/28/18 at 10:30; Stop 06/28/18 at 10:31; Status DC Bisacodyl (Dulcolax Tab) 10 mg 1X ONCE PO Last administered on 06/28/18at 09: 53; Start 06/28/18 at 09:45; Stop 06/28/18 at 09:46; Status DC Bisacodyl (Dulcolax Tab) 10 mg 1X ONCE PO Last administered on 06/28/18at 10: 25; Start 06/28/18 at 10:30; Stop 06/28/18 at 10:31; Status DC Midazolam HCl (Versed) 2 mg PRN 1X PRN IV PRIOR TO PROCEDURE; Start 06/28/18 at 13:45; Stop 06/29/18 at 13:44; Status DC Fentanyl Citrate (Fentanyl 2ml Vial) 25 mcg PRN Q5MIN PRN IV X 2 DOSES FOR PAIN ; Start 06/28/18 at 13:45; Stop 06/29/18 at 13:44; Status DC Fentanyl Citrate (Fentanyl 2ml Vial) 50 mcg PRN Q5MIN PRN IV X 2 DOSES FOR PAIN ; Start 06/28/18 at 13:45; Stop 06/29/18 at 13:44; Status DC Ringer's Solution 1,000 ml @ 125 mls/hr Q8H IV Last administered on at 13:41; Start 06/28/18 at 13:31; Stop 06/29/18 at 01:30; Status DC Lidocaine HCl (Xylocaine-Mpf 1% 2ml Vial) 2 ml 1X PRN PRN ID IV START; Start 06/28/18 at 13:45; Stop 06/29/18 at 13:44; Status DC Propofol 20 ml @ As Directed STK-MED ONCE IV ; Start 06/28/18 at 14:09; Stop 06/28/18 at 14:10; Status DC Amlodipine Besylate (Norvasc) 5 mg HS PO Last administered on 06/29/18at 21:48 ; Start 06/29/18 at 21:00 Psyllium Hydrophilic Mucilloid (Metamucil Fiber Packet) 1 pkt DAILY PO Last administered on 06/30/18at 18:22; Start 06/29/18 at 13:30 Active Scripts Active Reported Synthroid (Levothyroxine Sodium) 75 Mcg Tablet 1 Tab PO DAILY Losartan Potassium 50 Mg Tablet 50 Mg PO DAILY Zoloft (Sertraline Hcl) 50 Mg Tablet 75 Mg PO DAILY Keppra (Levetiracetam) 500 Mg Tablet 1 Tab PO BID Protonix (Pantoprazole Sodium) 20 Mg Tablet.dr 40 Mg PO DAILY Amlodipine Besylate 5 Mg Tablet 5 Mg PO DAILY Atorvastatin Calcium 10 Mg Tablet 1 Tab PO DAILY Potassium Chloride 10 Meq Tab.sr.24h 10 Meq PO QMWF Lasix (Furosemide) 20 Mg Tablet 20 Mg PO QMWF Vitals/I & O Vital Sign - Last 24 Hours 06/29/18 06/29/18 06/30/18 06/30/18 21:48 23:00 03:00 07:00 Temp 97.7 97.8 98.3 97.7 97.8 98.3 Pulse 83 79 74 76 Resp 16 17 16 B/P (MAP) 146/88 115/77 (90) 106/70 (82) 153/82 (105) Pulse Ox 96 96 94 O2 Delivery Room Air Room Air Room Air 06/30/18 06/30/18 06/30/18 06/30/18 08:00 08:49 11:00 15:00 Temp 97.8 97.8 97.8 97.8 Pulse 76 83 74 Resp 16 16 B/P (MAP) 153/82 126/75 (92) 154/84 (107) Pulse Ox 96 93 O2 Delivery Room Air Room Air Room Air O2 Flow Rate 2.0 06/30/18 19:00 Temp 98.7 98.7 Pulse 59 Resp 18 B/P (MAP) 134/82 (99) Pulse Ox 92 O2 Delivery Room Air Intake and Output 06/29/18 06/29/18 06/30/18 15:00 23:00 07:00 Intake Total 840 ml 360 ml Output Total 620 ml Balance 840 ml -260 ml GUY ESPINO MD Jun 30, 2018 20:57
[2018-06-30] MEDS: amLODIPine BESYLATE 5 MG TABLET PO SCH (21:33)
[2018-06-30 22:47] VITALS: BP 138/103
[2018-07-01 02:40] VITALS: BP 116/81
[2018-07-01 07:00] VITALS: BP 129/78
[2018-07-01] MEDS: PSYLLIUM HUSK (SUGAR FREE) 1 PKT PACKET PO SCH (09:33)
[2018-07-01] MEDS: levETIRAcetam 500 MG TABLET PO SCH ×2 (09:33→21:06)
[2018-07-01] MEDS: PANTOPRAZOLE 40 MG TABLET.DR. PO SCH (09:33)
[2018-07-01] MEDS: ATORVASTATIN CALCIUM 10 MG TABLET. PO SCH (09:34)
[2018-07-01] MEDS: LOSARTAN POTASSIUM 50 MG TABLET. PO SCH (09:34)
[2018-07-01] MEDS: SERTRALINE 50 MG TABLET. PO SCH (09:34)
[2018-07-01] MEDS: COLESTIPOL HCL 1 GM TABLET PO SCH ×2 (09:34→21:05)
[2018-07-01] MEDS: LEVOTHYROXINE 75 MCG TABLET PO SCH (09:35)
[2018-07-01 10:58] VITALS: BP 132/72
--- NOTE | 2018-07-01 13:59 | PDOC ---
G I PROGRESS NOTE Reason for Follow-up Diarrhea/gi bleed Subjective Tolerating po Physical Exam Lungs clear CV S1 S2 ABD +BS, soft, nontender Review of Relevant I have reviewed the following items alfredo (where applicable) has been applied. Labs Laboratory Tests Test 06/30/18 04:05 White Blood Count 7.6 x10^3/uL (4.0-11.0) Red Blood Count 3.80 x10^6/uL (3.50-5.40) Hemoglobin 12.3 g/dL (12.0-15.5) Hematocrit 35.9 % (36.0-47.0) Mean Corpuscular Volume 95 fL (79-100) Mean Corpuscular Hemoglobin 32 pg (25-35) Mean Corpuscular Hemoglobin Concent 34 g/dL (31-37) Red Cell Distribution Width 14.3 % (11.5-14.5) Platelet Count 135 x10^3/uL (140-400) Microbiology 06/25/18 Stool Culture - Final, Complete 06/25/18 Stool Culture Result 1 (JAMISON) - Final, Complete 06/25/18 Campylobacter Antigen Assay - Final, Complete 06/25/18 Campylobactor Result 1 - Final, Complete 06/25/18 Shiga Toxin Test - Final, Complete 06/26/18 Urine Culture - Final, Complete 06/26/18 Urine Culture Result 1 (JAMISON) - Final, Complete 06/26/18 Antimicrobic Susceptibility - Final, Complete Medications Current Medications Sodium Chloride 500 ml @ 500 mls/hr 1X ONCE IV Last administered on at 10:03; Start 06/25/18 at 10:00; Stop 06/25/18 at 10:59; Status DC Sodium Chloride 1,000 ml @ 100 mls/hr Q10H IV Last administered on 06/25/18at 10:00; Start 06/25/18 at 10:00; Stop 06/25/18 at 19:59; Status DC Amlodipine Besylate (Norvasc) 5 mg DAILY PO ; Start 06/26/18 at 09:00; Stop at 09:00; Status DC Atorvastatin Calcium (Lipitor) 10 mg DAILY PO Last administered on 07/01/18at 09 :34; Start 06/26/18 at 09:00 Furosemide (Lasix) 20 mg QMWF PO Last administered on 06/29/18at 16:49; Start 06/27/18 at 16:00 Levetiracetam (Keppra) 500 mg BID PO Last administered on 07/01/18at 09:33; Start 06/25/18 at 21:00 Levothyroxine Sodium (Synthroid) 75 mcg DAILY PO Last administered on at 09:35; Start 06/26/18 at 09:00 Losartan Potassium (Cozaar) 50 mg DAILY PO ; Start 06/26/18 at 09:00; Stop at 09:00; Status DC Potassium Chloride (Klor-Con) 10 meq QMWF PO Last administered on 06/29/18at 16 :49; Start 06/27/18 at 16:00 Sertraline HCl (Zoloft) 75 mg DAILY PO Last administered on 07/01/18 09:34; Start 06/26/18 at 09:00 Pantoprazole Sodium (Protonix) 40 mg DAILYAC PO Last administered on 07/01/18 09:33; Start 06/26/18 at 07:30 Amlodipine Besylate (Norvasc) 5 mg DAILY PO Last administered on 06/28/18at 09: 12; Start 06/25/18 at 21:00; Stop 06/29/18 at 12:57; Status DC Losartan Potassium (Cozaar) 50 mg DAILY PO Last administered on 07/01/18at 09:34 ; Start 06/25/18 at 21:00 Iohexol (Omnipaque 240 Mg/ml) 50 ml 1X ONCE IV ; Start 06/26/18 at 11:00; Stop 06/26/18 at 11:01; Status DC Iohexol (Omnipaque 300 Mg/ml) 75 ml 1X ONCE IV ; Start 06/26/18 at 11:00; Stop 06/26/18 at 11:01; Status DC Info (CONTRAST GIVEN -- Rx MONITORING) 1 each PRN DAILY PRN MC SEE COMMENTS; Start 06/26/18 at 11:00; Stop 06/28/18 at 10:59; Status DC Loperamide HCl (Imodium) 2 mg PRN QID PRN PO DIARRHEA Last administered on at 11:22; Start 06/26/18 at 15:00 Colestipol HCl (Colestid) 1 gm BID@10,22 PO Last administered on 07/01/18at 09: 34; Start 06/26/18 at 22:00 Potassium Chloride (Klor-Con) 40 meq 1X ONCE PO Last administered on at 08:48; Start 06/27/18 at 08:00; Stop 06/27/18 at 08:01; Status DC Magnesium Citrate (Citroma) 296 ml 1X ONCE PO Last administered on 06/28/18at 09:52; Start 06/28/18 at 09:45; Stop 06/28/18 at 09:46; Status DC Magnesium Citrate (Citroma) 296 ml 1X ONCE PO Last administered on 06/28/18at 10:25; Start 06/28/18 at 10:30; Stop 06/28/18 at 10:31; Status DC Bisacodyl (Dulcolax Tab) 10 mg 1X ONCE PO Last administered on 06/28/18at 09: 53; Start 06/28/18 at 09:45; Stop 06/28/18 at 09:46; Status DC Bisacodyl (Dulcolax Tab) 10 mg 1X ONCE PO Last administered on 06/28/18at 10: 25; Start 06/28/18 at 10:30; Stop 06/28/18 at 10:31; Status DC Midazolam HCl (Versed) 2 mg PRN 1X PRN IV PRIOR TO PROCEDURE; Start 06/28/18 at 13:45; Stop 06/29/18 at 13:44; Status DC Fentanyl Citrate (Fentanyl 2ml Vial) 25 mcg PRN Q5MIN PRN IV X 2 DOSES FOR PAIN ; Start 06/28/18 at 13:45; Stop 06/29/18 at 13:44; Status DC Fentanyl Citrate (Fentanyl 2ml Vial) 50 mcg PRN Q5MIN PRN IV X 2 DOSES FOR PAIN ; Start 06/28/18 at 13:45; Stop 06/29/18 at 13:44; Status DC Ringer's Solution 1,000 ml @ 125 mls/hr Q8H IV Last administered on at 13:41; Start 06/28/18 at 13:31; Stop 06/29/18 at 01:30; Status DC Lidocaine HCl (Xylocaine-Mpf 1% 2ml Vial) 2 ml 1X PRN PRN ID IV START; Start 06/28/18 at 13:45; Stop 06/29/18 at 13:44; Status DC Propofol 20 ml @ As Directed STK-MED ONCE IV ; Start 06/28/18 at 14:09; Stop 06/28/18 at 14:10; Status DC Amlodipine Besylate (Norvasc) 5 mg HS PO Last administered on 06/30/18at 21:33; Start 06/29/18 at 21:00 Psyllium Hydrophilic Mucilloid (Metamucil Fiber Packet) 1 pkt DAILY PO Last administered on 07/01/18at 09:33; Start 06/29/18 at 13:30 Active Scripts Active Reported Synthroid (Levothyroxine Sodium) 75 Mcg Tablet 1 Tab PO DAILY Losartan Potassium 50 Mg Tablet 50 Mg PO DAILY Zoloft (Sertraline Hcl) 50 Mg Tablet 75 Mg PO DAILY Keppra (Levetiracetam) 500 Mg Tablet 1 Tab PO BID Protonix (Pantoprazole Sodium) 20 Mg Tablet.dr 40 Mg PO DAILY Amlodipine Besylate 5 Mg Tablet 5 Mg PO DAILY Atorvastatin Calcium 10 Mg Tablet 1 Tab PO DAILY Potassium Chloride 10 Meq Tab.sr.24h 10 Meq PO QMWF Lasix (Furosemide) 20 Mg Tablet 20 Mg PO QMWF Vitals/I & O Vital Sign - Last 24 Hours 06/30/18 06/30/18 06/30/18 06/30/18 15:00 19:00 20:00 21:33 Temp 97.8 98.7 97.8 98.7 Pulse 74 59 59 Resp 16 18 B/P (MAP) 154/84 (107) 134/82 (99) 134/82 Pulse Ox 93 92 O2 Delivery Room Air Room Air Room Air 06/30/18 07/01/18 07/01/18 07/01/18 22:47 02:40 07:00 08:00 Temp 97.8 97.4 97.9 97.8 97.4 97.9 Pulse 75 80 87 Resp 17 17 20 B/P (MAP) 138/103 (115) 116/81 (93) 129/78 (95) Pulse Ox 94 93 94 O2 Delivery Room Air Room Air Room Air Room Air O2 Flow Rate 2.0 07/01/18 07/01/18 09:34 10:58 Temp 97.9 97.9 Pulse 87 85 Resp 20 B/P (MAP) 129/78 132/72 (92) Pulse Ox 95 O2 Delivery Room Air Intake and Output 06/30/18 06/30/18 07/01/18 15:00 23:00 07:00 Intake Total 840 ml 900 ml Balance 840 ml 900 ml Problem List Problems Medical Problems: (1) Diarrhea Status: Acute (2) Occult blood in stools Status: Acute (3) Weakness Status: Acute Assessment Diarrhea- with bleeding, resolved, advance diet and activity as tolerated AYLIN ESPAÑA MD Jul 01, 2018 13:59
[2018-07-01 14:56] VITALS: BP 131/87
--- NOTE | 2018-07-01 15:44 | PDOC ---
PROGRESS NOTES Chief Complaint Chief Complaint Blood in stool Diarrhea HTN Afib H/O CVA History of Present Illness History of Present Illness Pleasant 87yo female w/ PMHx Lymphoma, hypertension, stroke, AFib, appendectomy , cholecystectomy admitted for intermittent diarrhea for at least 2 years.Diarrhea most recently occurred weekend before Thanksgiving after the holiday meal where she lives. Imodium usually helps, but not this time. Occurs "all day and all night" - no stools since yesterday. Associated w/ intermittent lower abdominal cramping and occasional nausea. Has avoided eating due to this, does not like her diet at [facility]. Has had more than one EGD w/ remote h/o ulcer and colonoscopy in 2010 with hyperplastic polyp and 2x adenomatous polyps. No dysphagia or vomiting. No weight loss.Has had GI bleeding in the past requiring transfusions - relates to use of anticoagulants, unclear if specific bleeding source identified. S/p cholecystectomy (no stones). Colonoscopy 06/28/18 was poor prep and diverticulosis with no active bleeding identified. No further blood in stool found. At this time she has had no loose stool and no abdominal pain. She is on solid diet without issue. WBC and Hgb are WNL. Fecal occult was positive. C Diff was negative. Stool culture is pending, but mostly negative. She is improved and can be dc;ed in am to [facility]. A/P: Blood in stool - history of rectal bleeding previously multiple colonoscopies, appreciate GI recs, diverticulosis treatment -resolved Diarrhea - sounds chronic, will f/u stool cultures, immodium ok if c diff negative. Will give psyllium as well. - resolved HTN - will monitor Afib - rate control H/O CVA - ambulatory FEN - NPO, clear liquid after colonoscopy --> advance to solids PPX - SCDs FULL CODE Inpatient for diarrhea of uncertain etiology at least [address] abdomen - 1. Colonic diverticulosis. 2. Mild biliary ductal prominence is probably secondary to the postcholecystectomy state. 3. Hepatic cysts. 4. Other miscellaneous chronic findings as described above. 5. No acute abdominal or pelvic abnormality is detected. Vitals Vitals Vital Signs Date Time Temp Pulse Resp B/P (MAP) Pulse Ox O2 Delivery O2 Flow Rate FiO2 07/01/18 14:56 97.9 79 20 131/87 (102) 94 Room Air 97.9 07/01/18 08:00 2.0 Physical Exam General: Alert, Oriented X3, Cooperative, No acute distress, Other (No pallor) Heart: Regular rate, No murmurs Lungs: Clear Abdomen: Normal bowel sounds, No tenderness Extremities: No clubbing, No cyanosis, No edema, Normal pulses Skin: No rashes, No breakdown, No significant lesion Assessment and Plan Assessmemt and Plan Problems Medical Problems: (1) Diarrhea Status: Acute (2) Occult blood in stools Status: Acute (3) Weakness Status: Acute Comment Review of Relevant I have reviewed the following items alfredo (where applicable) has been applied. Labs Laboratory Tests Test 06/30/18 04:05 White Blood Count 7.6 x10^3/uL (4.0-11.0) Red Blood Count 3.80 x10^6/uL (3.50-5.40) Hemoglobin 12.3 g/dL (12.0-15.5) Hematocrit 35.9 % (36.0-47.0) Mean Corpuscular Volume 95 fL (79-100) Mean Corpuscular Hemoglobin 32 pg (25-35) Mean Corpuscular Hemoglobin Concent 34 g/dL (31-37) Red Cell Distribution Width 14.3 % (11.5-14.5) Platelet Count 135 x10^3/uL (140-400) Microbiology 06/25/18 Stool Culture - Final, Complete 06/25/18 Stool Culture Result 1 (JAMISON) - Final, Complete 06/25/18 Campylobacter Antigen Assay - Final, Complete 06/25/18 Campylobactor Result 1 - Final, Complete 06/25/18 Shiga Toxin Test - Final, Complete 06/26/18 Urine Culture - Final, Complete 06/26/18 Urine Culture Result 1 (JAMISON) - Final, Complete 06/26/18 Antimicrobic Susceptibility - Final, Complete Medications Current Medications Sodium Chloride 500 ml @ 500 mls/hr 1X ONCE IV Last administered on at 10:03; Start 06/25/18 at 10:00; Stop 06/25/18 at 10:59; Status DC Sodium Chloride 1,000 ml @ 100 mls/hr Q10H IV Last administered on 06/25/18at 10:00; Start 06/25/18 at 10:00; Stop 06/25/18 at 19:59; Status DC Amlodipine Besylate (Norvasc) 5 mg DAILY PO ; Start 06/26/18 at 09:00; Stop at 09:00; Status DC Atorvastatin Calcium (Lipitor) 10 mg DAILY PO Last administered on 07/01/18 09 :34; Start 06/26/18 at 09:00 Furosemide (Lasix) 20 mg QMWF PO Last administered on 06/29/18at 16:49; Start 06/27/18 at 16:00 Levetiracetam (Keppra) 500 mg BID PO Last administered on 07/01/18 09:33; Start 06/25/18 at 21:00 Levothyroxine Sodium (Synthroid) 75 mcg DAILY PO Last administered on 09:35; Start 06/26/18 at 09:00 Losartan Potassium (Cozaar) 50 mg DAILY PO ; Start 06/26/18 at 09:00; Stop at 09:00; Status DC Potassium Chloride (Klor-Con) 10 meq QMWF PO Last administered on 06/29/18at 16 :49; Start 06/27/18 at 16:00 Sertraline HCl (Zoloft) 75 mg DAILY PO Last administered on 07/01/18 09:34; Start 06/26/18 at 09:00 Pantoprazole Sodium (Protonix) 40 mg DAILYAC PO Last administered on 07/01/18 09:33; Start 06/26/18 at 07:30 Amlodipine Besylate (Norvasc) 5 mg DAILY PO Last administered on 06/28/18at 09: 12; Start 06/25/18 at 21:00; Stop 06/29/18 at 12:57; Status DC Losartan Potassium (Cozaar) 50 mg DAILY PO Last administered on 07/01/18 09:34 ; Start 06/25/18 at 21:00 Iohexol (Omnipaque 240 Mg/ml) 50 ml 1X ONCE IV ; Start 06/26/18 at 11:00; Stop 06/26/18 at 11:01; Status DC Iohexol (Omnipaque 300 Mg/ml) 75 ml 1X ONCE IV ; Start 06/26/18 at 11:00; Stop 06/26/18 at 11:01; Status DC Info (CONTRAST GIVEN -- Rx MONITORING) 1 each PRN DAILY PRN MC SEE COMMENTS; Start 06/26/18 at 11:00; Stop 06/28/18 at 10:59; Status DC Loperamide HCl (Imodium) 2 mg PRN QID PRN PO DIARRHEA Last administered on at 11:22; Start 06/26/18 at 15:00 Colestipol HCl (Colestid) 1 gm BID@ PO Last administered on 07/01/18at 09: 34; Start 06/26/18 at 22:00 Potassium Chloride (Klor-Con) 40 meq 1X ONCE PO Last administered on at 08:48; Start 06/27/18 at 08:00; Stop 06/27/18 at 08:01; Status DC Magnesium Citrate (Citroma) 296 ml 1X ONCE PO Last administered on 06/28/18at 09:52; Start 06/28/18 at 09:45; Stop 06/28/18 at 09:46; Status DC Magnesium Citrate (Citroma) 296 ml 1X ONCE PO Last administered on 06/28/18at 10:25; Start 06/28/18 at 10:30; Stop 06/28/18 at 10:31; Status DC Bisacodyl (Dulcolax Tab) 10 mg 1X ONCE PO Last administered on 06/28/18at 09: 53; Start 06/28/18 at 09:45; Stop 06/28/18 at 09:46; Status DC Bisacodyl (Dulcolax Tab) 10 mg 1X ONCE PO Last administered on 06/28/18at 10: 25; Start 06/28/18 at 10:30; Stop 06/28/18 at 10:31; Status DC Midazolam HCl (Versed) 2 mg PRN 1X PRN IV PRIOR TO PROCEDURE; Start 06/28/18 at 13:45; Stop 06/29/18 at 13:44; Status DC Fentanyl Citrate (Fentanyl 2ml Vial) 25 mcg PRN Q5MIN PRN IV X 2 DOSES FOR PAIN ; Start 06/28/18 at 13:45; Stop 06/29/18 at 13:44; Status DC Fentanyl Citrate (Fentanyl 2ml Vial) 50 mcg PRN Q5MIN PRN IV X 2 DOSES FOR PAIN ; Start 06/28/18 at 13:45; Stop 06/29/18 at 13:44; Status DC Ringer's Solution 1,000 ml @ 125 mls/hr Q8H IV Last administered on at 13:41; Start 06/28/18 at 13:31; Stop 06/29/18 at 01:30; Status DC Lidocaine HCl (Xylocaine-Mpf 1% 2ml Vial) 2 ml 1X PRN PRN ID IV START; Start 06/28/18 at 13:45; Stop 06/29/18 at 13:44; Status DC Propofol 20 ml @ As Directed STK-MED ONCE IV ; Start 06/28/18 at 14:09; Stop 06/28/18 at 14:10; Status DC Amlodipine Besylate (Norvasc) 5 mg HS PO Last administered on 06/30/18at 21:33; Start 06/29/18 at 21:00 Psyllium Hydrophilic Mucilloid (Metamucil Fiber Packet) 1 pkt DAILY PO Last administered on 07/01/18at 09:33; Start 06/29/18 at 13:30 Active Scripts Active Reported Synthroid (Levothyroxine Sodium) 75 Mcg Tablet 1 Tab PO DAILY Losartan Potassium 50 Mg Tablet 50 Mg PO DAILY Zoloft (Sertraline Hcl) 50 Mg Tablet 75 Mg PO DAILY Keppra (Levetiracetam) 500 Mg Tablet 1 Tab PO BID Protonix (Pantoprazole Sodium) 20 Mg Tablet.dr 40 Mg PO DAILY Amlodipine Besylate 5 Mg Tablet 5 Mg PO DAILY Atorvastatin Calcium 10 Mg Tablet 1 Tab PO DAILY Potassium Chloride 10 Meq Tab.sr.24h 10 Meq PO QMWF Lasix (Furosemide) 20 Mg Tablet 20 Mg PO QMWF Vitals/I & O Vital Sign - Last 24 Hours 06/30/18 06/30/18 06/30/18 06/30/18 19:00 20:00 21:33 22:47 Temp 98.7 97.8 98.7 97.8 Pulse 59 59 75 Resp 18 17 B/P (MAP) 134/82 (99) 134/82 138/103 (115) Pulse Ox 92 94 O2 Delivery Room Air Room Air Room Air 07/01/18 07/01/18 07/01/18 07/01/18 02:40 07:00 08:00 09:34 Temp 97.4 97.9 97.4 97.9 Pulse 80 87 87 Resp 17 20 B/P (MAP) 116/81 (93) 129/78 (95) 129/78 Pulse Ox 93 94 O2 Delivery Room Air Room Air Room Air O2 Flow Rate 2.0 07/01/18 07/01/18 10:58 14:56 Temp 97.9 97.9 97.9 97.9 Pulse 85 79 Resp 20 20 B/P (MAP) 132/72 (92) 131/87 (102) Pulse Ox 95 94 O2 Delivery Room Air Room Air Intake and Output 06/30/18 06/30/18 07/01/18 15:00 23:00 07:00 Intake Total 840 ml 900 ml Balance 840 ml 900 ml GUY ESPINO MD Jul 01, 2018 15:44
[2018-07-01 18:36] VITALS: BP 128/75
[2018-07-01] MEDS: amLODIPine BESYLATE 5 MG TABLET PO SCH (21:05)
[2018-07-01 22:49] VITALS: BP 135/96
[2018-07-02 02:56] VITALS: BP 122/80
[2018-07-02 06:35] VITALS: BP 138/88
[2018-07-02] MEDS: LEVOTHYROXINE 75 MCG TABLET PO SCH (09:29)
[2018-07-02] MEDS: PANTOPRAZOLE 40 MG TABLET.DR. PO SCH (09:29)
[2018-07-02] MEDS: levETIRAcetam 500 MG TABLET PO SCH (09:29)
[2018-07-02] MEDS: COLESTIPOL HCL 1 GM TABLET PO SCH (09:29)
[2018-07-02] MEDS: SERTRALINE 50 MG TABLET. PO SCH (09:29)
[2018-07-02] MEDS: PSYLLIUM HUSK (SUGAR FREE) 1 PKT PACKET PO SCH (09:30)
[2018-07-02] MEDS: ATORVASTATIN CALCIUM 10 MG TABLET. PO SCH (09:30)
[2018-07-02] MEDS: LOSARTAN POTASSIUM 50 MG TABLET. PO SCH (09:32)
[2018-07-02 11:00] VITALS: BP 124/71
[2018-07-02] MEDS ORDERED: COLE1TAB PO (11:12)
--- NOTE | 2018-07-02 11:13 | DISCH ---
DISCHARGE DISCHARGE INFORMATION: DISCHARGE DATE: Jul 02, 2018 FINAL DIAGNOSIS Problems Medical Problems: (1) Diarrhea Status: Acute (2) Occult blood in stools Status: Acute (3) Weakness Status: Acute CONDITION ON DISCHARGE: Stable CODE STATUS: Code Status: Full NURSING HOME: SNF STAY <30 DAYS: Yes POST DISCHARGE ORDERS: ACTIVITY ORDERS: Resume previous activity WEIGHT BEARING STATUS: No restrictions DIET AFTER DISCHARGE: Cardiac FOLLOW-UP: PHYSICIAN FOLLOW-UP: PCP in 2 weeks TREATMENT/EQUIPMENT ORDERS: Physical Therapy For: Evalulation/Treatment Occupational Therapy For: Evaluation/Treatment DISCHARGE MEDICATIONS: Home Meds Active Scripts Colestipol Hcl (COLESTID) 1 Gm Tablet, 1 GM PO BID@10,22 for diarrhea for 30 Days, TAB Prov:DAKOTA GARSIA MD 07/02/18 Reported Medications Levothyroxine Sodium (SYNTHROID) 75 Mcg Tablet, 1 TAB PO DAILY for hypothyroid, #30 TAB 5 Refills 06/25/18 Losartan Potassium (LOSARTAN POTASSIUM) 50 Mg Tablet, 50 MG PO DAILY for bp, TAB 06/25/18 Sertraline Hcl (ZOLOFT) 50 Mg Tablet, 75 MG PO DAILY for ANTI-DEPRESSANT, TAB 0 Refills 06/25/18 Levetiracetam (KEPPRA) 500 Mg Tablet, 1 TAB PO BID for migraines, #180 TAB 3 Refills 06/25/18 Pantoprazole Sodium (PROTONIX) 20 Mg Tablet.dr, 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
--- NOTE | 2018-07-02 11:31 | PDOC ---
Subjective: Subjective: Formed stool w/o blood this morning, tolerating PO, no abd pain. Objective: Objective: D/w RN - possible DC to SNU today. Vital Signs: Vital Signs Date Time Temp Pulse Resp B/P (MAP) Pulse Ox O2 Delivery O2 Flow Rate FiO2 07/02/18 09:32 75 138/88 07/02/18 08:00 Room Air 07/02/18 06:35 97.8 16 95 97.8 07/01/18 08:00 2.0 Labs: STOOL CULTURE Final Final report STOOL CULT RES 1 Final Comment No Salmonella or Shigella recovered. CAMPY Final Final report CAMPY RES 1 Final Comment No Campylobacter species isolated. SHIGA TOXIN Final Negative Negative PE: GEN: NAD LUNGS: CTAB HEART: RRR ABD: NABS, S/ND/NT NEURO/PSYCH: A & O 3 A/P: Diarrhea/hematochezia - resolved Diverticulosis UTI -- Stable/improved from GI standpoint, DC per primary. Can adjust Colestid as needed (will reduce now as having formed stools). CASTILLO GRECO Jul 02, 2018 11:31
--- NOTE | 2018-07-02 13:30 | PDOC3 ---
Discharge Summary [facility] Date of Admission: Jun 25, 2018 Discharge Date: Jul 02, 2018 Admitting Diagnosis Blood in stool, diverticulosis Diarrhea HTN Afib wo AC H/O CVA h/o seizure Final Diagnosis CONSULTS gi Brief Hospital Course Ms. Lock is a 87 old F, came for diarrhea and some blood in stool. Hb stable as 12-13. CT showed diverticulosis. pt's diarrhea and hemochotezi resolved. pt actually has chronic diarrhea since cholecystectomy 4ys ago. colestid added. still some weakness with PTOT, recommend rehab. dc to rehab, dc time 35min. General: Alert, Oriented X3, Cooperative, No acute distress, Other (No pallor) Heart: Regular rate, No murmurs Lungs: Clear Abdomen: Normal bowel sounds, No tenderness Extremities: No clubbing, No cyanosis, No edema, Normal pulses Skin: No rashes, No breakdown, No significant lesion Disposition rehab CONDITION AT DISCHARGE: Improved Scheduled Amlodipine Besylate (Amlodipine Besylate), 5 MG PO DAILY, (Reported) Atorvastatin Calcium (Atorvastatin Calcium), 1 TAB PO DAILY, (Reported) Colestipol Hcl (Colestid), 1 GM PO BID@10,22 Furosemide (Lasix), 20 MG PO QMWF, (Reported) Levetiracetam (Keppra), 1 TAB PO BID, (Reported) Levothyroxine Sodium (Synthroid), 1 TAB PO DAILY, (Reported) Losartan Potassium (Losartan Potassium), 50 MG PO DAILY, (Reported) Pantoprazole Sodium (Protonix), 40 MG PO DAILY, (Reported) Potassium Chloride (Potassium Chloride), 10 MEQ PO QMWF, (Reported) Sertraline Hcl (Zoloft), 75 MG PO DAILY, (Reported) DAKOTA GARSIA MD Jul 02, 2018 13:30
[2018-07-03] MEDS ORDERED: COLESTIPOL HCL 1 GM TABLET PO SCH (10:00)
== END 2018-07-02 16:25 | DRG 378 ==
LOC: ER 08:40 → 5 SOUTH 14:30
PROVIDERS: ADMIT Internal Medicine; ATTEND Internal Medicine
PROC: 0DJD8ZZ Inspection of Lower Intestinal Tract, Via Natural or Artificial Opening Endoscopic (ICD-10-PCS; principal; 2018-06-25)
DX: K57.31 Diverticulosis of large intestine without perforation or abscess with bleeding (principal); N39.0 Urinary tract infection, site not specified; E03.9 Hypothyroidism, unspecified; I10 Essential (primary) hypertension; I25.10 Atherosclerotic heart disease of native coronary artery without angina pectoris; I48.91 Unspecified atrial fibrillation; K21.9 Gastro-esophageal reflux disease without esophagitis; K52.9 Noninfective gastroenteritis and colitis, unspecified; K76.89 Other specified diseases of liver; Z90.49 Acquired absence of other specified parts of digestive tract; Z79.899 Other long term (current) drug therapy; Z88.0 Allergy status to penicillin; Z95.1 Presence of aortocoronary bypass graft; Z87.891 Personal history of nicotine dependence; Z85.72 Personal history of non-Hodgkin lymphomas; Z92.21 Personal history of antineoplastic chemotherapy; Z86.73 Personal history of transient ischemic attack (TIA), and cerebral infarction without residual deficits; Z82.49 Family history of ischemic heart disease and other diseases of the circulatory system
CPT/HCPCS: 36415; 45378; 74177; 80053; 81001; 82274; 83690; 85007; 85025; 85027; 87045; 87086; 87186; 87493; 96360; J2704; J7030; J7040; J7120; 97110; 97116; 97530; 97535; 99285-25